=== PATIENT | female | born 2000 | race Caucasian/White ===

== ENCOUNTER 2023-11-19 10:49 | Emergency (ER) | payer OTHER ==
[~2023-11-19] VITALS: Ht 154.9 cm; Wt 54.4 kg
[2023-11-19 12:21] LABS: Urine Bacteria FEW /hpf (None Seen); Urine Blood Negative /uL (Negative); Urine Clarity Clear (Clear); Urine Color Colorless (Yellow); Urine Protein, UAD Negative (Negative); Urine Urobilinogen Normal (Negative); Urine WBC <1 /hpf (0 - 5); Urine pH 7.5 (5.0-9.0)
[2023-11-19 14:09] VITALS: BP 119/70; PULSE 92; RESP 18; O2SAT 97
== END 2023-11-19 14:13 | disposition home or self-care (01) ==
LOC: ER 10:49
DX: O20.0 Threatened abortion (principal); R10.2 Pelvic and perineal pain; Z3A.10 10 weeks gestation of pregnancy
CPT/HCPCS: 36415; 76801; 81001; 84702

== ENCOUNTER → 2024-04-03 | Outpatient (CLI) | payer OTHER ==
[2024-04-04 20:06] LABS: Chlamydia Trachomatis, NAA Negative (Negative); Neisseria gonorrhoeae, NAA Negative (Negative)
== END | disposition home or self-care (01) ==
LOC: LAB 12:32
PROVIDERS: ATTEND Obstetrics & Gynecology
DX: Z34.00 Encounter for supervision of normal first pregnancy, unspecified trimester (principal); N39.0 Urinary tract infection, site not specified; Z3A.00 Weeks of gestation of pregnancy not specified

== ENCOUNTER 2024-06-13 05:34 | Observation (INO) | payer MEDICAID, OTHER ==
--- NOTE | 2024-06-13 16:02 | DVH ---
CLINICAL HISTORY: POST DATES COMPARISON: None TECHNIQUE: biophysical profile was performed. Transabdominal sonographic images of the fetus we re obtained. FINDINGS: The fetus is in cephalic position. heart rate measures 147 BPM. Amniotic fluid index measures 22.5 cm. The placenta is anterior in position. No evidence of placenta previa or abruption v isualized. BPP profile is an overall score of 8/8, with 2/2 points for breathing, with at least one episode of breathing over a 30 second duration during a 30 minute observation, 2/2 points for m ovements, with 3 or more discrete body or limb movements, 2/2 points for tone, with one or more episodes of extremity extension with return to flexion, or opening and closing of hand, and 2/ 2 points for amniotic fluid, with at least 1 pocket of amniotic fluid that measures 2 cm in 2 perpend icular planes. IMPRESSION: BPP score of 8/8.
--- NOTE | 2024-06-13 16:29 | DVH ---
Left lower extremity venous duplex Clinical History: R/O DVT LEFT LOWER EXTREMITY Comparison: None Technique: Duplex Doppler evaluation of the deep venous system of the left lower extremity from the common femor al vein to the popliteal vein including color Doppler and spectral/pulsed waveform analysis was perfo rmed. Findings: The common femoral vein demonstrates appropriate compressibility and waveform variability. There is compressibility/patency of the great saphenous vein at the proximal thigh. The femoral vein demonstrates appropriate compressibility and waveform variability. The deep femoral vein demonstrates appropriate compressibility and waveform variability. The popliteal vein demonstrates appropriate compressibility and waveform variability. There is normal compressibility at the tibioperoneal trunk. Impression: 1. No left femoropopliteal venous thrombosis.
--- NOTE | 2024-06-13 19:39 | DVHDS2 ---
Physician Discharge Progress N Final Diagnosis: testing for term Operations or Procedures: Operations or Procedures 23yo IUP@40.1wks, +FM, denies UCs/LOF/VB. Pt c/o left leg swelling/pain/heat at site. VSS UA wnl NST reactive (last 20 minutes) verified by 2 RNs and CNM BPP wnl LLE sono WNL [facility]/Labor precautions reviewed Other Interventions Other Interventions [place] [id number] Ph: [phone] DIAGNOSTIC IMAGING Diagnostic Imaging Report : [id number] Signed PATIENT: JOSEFINA SANDS ACCT: [id number] UNIT: [id number] : 2000 LOC: [facility] ROOM / BED: TRIAGE1 / A AGE / SEX: 23 / F ADM STATUS: ADM IN SERVICE 155 ORDERING PHYSICIAN: ARIAN HUTCHISON CNM PROCEDURE(s): LLDVT - LT Lower DVT REASON: R/O DVT LEFT LOWER EXTREMITY ORDER NUMBER(s): [id number], ACCESSION NUMBER(s): [id number] Left lower extremity venous duplex Clinical History: R/O DVT LEFT LOWER EXTREMITY Comparison: None Technique: Duplex Doppler evaluation of the deep venous system of the left lower extremity from the common femoral vein to the popliteal vein including color Doppler and spectral/pulsed waveform analysis was performed. Findings: The common femoral vein demonstrates appropriate compressibility and waveform variability. There is compressibility/patency of the great saphenous vein at the proximal thigh. The femoral vein demonstrates appropriate compressibility and waveform variability. The deep femoral vein demonstrates appropriate compressibility and waveform variability. The popliteal vein demonstrates appropriate compressibility and waveform variability. There is normal compressibility at the tibioperoneal trunk. Impression: 1. No left femoropopliteal venous thrombosis. ATED BY: ISIDRO CERON MD DICTATED DATE/TIME: 06/13/241625 SIGNED BY: ISIDRO CERON MD SIGNED DATE/TIME: 06/13/241625 CC: Condition on Discharge: Stable Disposition: Home Discharge Instructions: Diet: Regular Activity: No Restrictions, As Tolerated Medications: see med list Follow Up Care: Specialist: f/u in 2 days Discharge Statement: "Patient was advised to return to the ER or call 911 if any headaches, dizziness, shortness of breath, chest pain, abdominal pain, bleeding, fevers, or worsening of medical condition. Patient was counseled about treatment plan, medications, possible side effects, patientverbalized understanding. All questions were answered to the best of my ability. This discharge took greater then 30 minutes in planning, reviewing documentation, counseling the patient, and discussing with other team members." ARIAN HUTCHISON CNM Jun 13, 2024 19:39
== END 2024-06-13 16:39 | disposition home or self-care (01) ==
LOC: LDRP 14:10 → UNDOADMOB 14:10 → LDRP 14:12 → UNDODISOB 16:39
PROVIDERS: ADMIT Obstetrics & Gynecology; ATTEND Obstetrics & Gynecology
DX: O48.0 Post-term pregnancy (principal); O26.893 Other specified pregnancy related conditions, third trimester; M79.89 Other specified soft tissue disorders; Z3A.40 40 weeks gestation of pregnancy; Z79.899 Other long term (current) drug therapy
CPT/HCPCS: 59025; 76818; 81002; 93971; 94760; G0378

== ENCOUNTER 2024-06-15 09:15 | Observation (INO) | payer OTHER, MEDICAID ==
--- NOTE | 2024-06-15 11:02 | DVH ---
BIOPHYSICAL PROFILE HISTORY: Post dates Comparison Study: None available at time of dictation. TECHNIQUE: Multiple real-time grayscale sonographic images through the gravid uterus of the fetus wit h duplex doppler color flow and M-mode spectral analysis FINDINGS: BIOPHYSICAL PROFILE: breathing score: 2 movement score: 2 tone score: 2 Quantitative LISA score: 2 (LISA: 20.4 cm.) Total score: 8/8 The cervix is not seen. Single live fetus in cephalic presentation. heart rate 173 beats per minute. Anterior placenta without previa or abruption Biophysical profile score 8/8 corresponding to an AMI of 06/12/2024 IMPRESSION: Biophysical profile score: 8/8
[2024-06-15] MEDS ORDERED: PREN1TAB71 OR (11:21)
--- NOTE | 2024-06-15 17:28 | DVHDS2 ---
Physician Discharge Progress N Final Diagnosis: POSTDATES Operations or Procedures: Operations or Procedures NST,SONO Condition on Discharge: Good Disposition: Home Discharge Instructions: Diet: Regular Activity: No Restrictions, As Tolerated Medications: NA Follow Up Care: Specialist: 2D Discharge Statement: "Patient was advised to return to the ER or call 911 if any headaches, dizziness, shortness of breath, chest pain, abdominal pain, bleeding, fevers, or worsening of medical condition. Patient was counseled about treatment plan, medications, possible side effects, patientverbalized understanding. All questions were answered to the best of my ability. This discharge took greater then 30 minutes in planning, reviewing documentation, counseling the patient, and discussing with other team members." NASH LOYD DO Jun 15, 2024 17:28
== END 2024-06-15 11:44 | disposition home or self-care (01) ==
LOC: LDRP 09:15
PROVIDERS: ADMIT Obstetrics & Gynecology; ATTEND Obstetrics & Gynecology
DX: O48.0 Post-term pregnancy (principal); Z98.890 Other specified postprocedural states; Z79.899 Other long term (current) drug therapy; Z3A.40 40 weeks gestation of pregnancy
CPT/HCPCS: 59025; 76818; 81002; G0378

== ENCOUNTER 2024-06-16 19:10 | Inpatient (IN) | payer OTHER, MEDICAID ==
[~2024-06-16] VITALS: Ht 154.9 cm; Wt 67.1 kg
[~2024-06-16 19:10] MED LIST: PREN1TAB71 OR
[2024-06-16] MEDS ORDERED: LIDOCAINE 2%HCL (LOCAL ANESTH.) INJ 20ML MDV IJ PRN (19:30)
[2024-06-16] MEDS ORDERED: DERMOPLAST 60ML BOTTLE TOP PRN (19:30)
[2024-06-16] MEDS ORDERED: WITCH HAZEL-GLYCERIN PAD TOP PRN (19:30)
[2024-06-16] MEDS ORDERED: BUTORPHANOL TARTRATE 2 MG/1 ML VIAL IV PRN ×2 (19:30)
[2024-06-16] MEDS ORDERED: PHISODERM TOP SOLN 240ML BTL TOP PRN (19:30)
[2024-06-16 20:25] LABS: Urine Bacteria None Seen /hpf (None Seen)
[2024-06-16 20:32] LABS: Basophils # (auto) 0 10 ^3/uL (0-0.2); Basophils % (auto) 0.1 % (0.0-2.0); Eosinophils # (auto) 0 10 ^3/uL (0-0.8); Hematocrit 30.8 % (36.0-46.0); Hemoglobin 10.2 g/dL (12.2-16.2); Lymphocytes # (auto) 2.7 10 ^3/uL (0.4-5.4); Lymphocytes % (auto) 19.4 % (10.0-50.0); Mean Corpuscular Hemoglobin 27.9 pg (28.0-32.0); Mean Corpuscular Hgb Conc. 33.2 g/dL (32.0-36.0); Mean Corpuscular Volume 83.9 fL (80.0-100.0); Monocytes # (auto) 0.6 10 ^3/uL (0-1.3); Monocytes % (auto) 4.7 % (0.0-12.0); Neutrophils # (auto) 10.4 10 ^3/uL (1.6-8.6); Neutrophils % (auto) 75.8 % (37.0-80.0); Nucleated Red Blood Cells % 0.1 %; Platelet Count (auto) 205 10^3/uL (140-450); Red Blood Cells 3.68 10^6/uL (4.0-5.20); Red Cell Distribution Width 14.7 % (11.8-14.3); White Blood Cell 13.7 10^3/uL (4.4-10.8)
[2024-06-16 20:34] LABS: Urine Blood Negative /uL (Negative); Urine Clarity Turbid (Clear); Urine Color Light-Yellow (Yellow); Urine Protein, UAD TRACE (Negative); Urine Squamous Epithelial Cell FEW /hpf (<5); Urine Urobilinogen Normal (Negative); Urine WBC 13 /hpf (0 - 5); Urine pH 6.5 (5.0-9.0)
[2024-06-16] MEDS: LACTATED RINGER'S 1,000 ML IV SCH (20:45)
[2024-06-16 20:47] LABS: INR 0.92 (0.9-1.15); Partial Thromboplastin Time 25.7 SEC (24.5-34.5); Prothrombin Time 9.8 sec (9.3-11.8)
[2024-06-16 20:51] LABS: Alanine Aminotransferase 12 U/L (7-40); Albumin 3.7 g/dL (3.2-4.8); Anion Gap 8 (5-15); Aspartate Aminotransferase 13 U/L (13-40); BUN/Creatinine Ratio 10.6 (10.0-20.0); Blood Urea Nitrogen 10 mg/dL (9-23); Calcium 9.5 mg/dL (8.7-10.4); Carbon Dioxide 23 mmol/L (20-31); Chloride 105 mmol/L (98-107); Glucose 95 mg/dL (74-106); Potassium 3.5 mmol/L (3.5-5.1); Sodium 136 mmol/L (136-145)
[2024-06-16 20:52] LABS: Bilirubin, Total 0.4 mg/dL (0.2-1.0); Total Protein 6.1 g/dL (5.7-8.2)
[2024-06-16] MEDS: DINOPROSTONE 10MG VAG SUPP PV ONE (21:08)
[2024-06-16 21:30] LABS: Amphetamine Screen, Urine Neg (NEGATIVE); Barbiturate Scree,Urine Neg (NEGATIVE); Benzodiazephine Screen, Urine Neg (NEGATIVE); Cannabinoid Screen, Urine Neg (NEGATIVE); Cocaine Screen, Urine Neg (NEGATIVE); Opiate Scree,Urine Neg (NEGATIVE); Phencyclidine Screen, Urine Neg (NEGATIVE)
[2024-06-16 21:31] LABS: Alkaline Phosphatase 220 U/L (46-116)
--- NOTE | 2024-06-16 23:14 | DVHHP2 ---
OB CC & HPI Date Date of Admission: Jun 16, 2024 Patient Identification: : 1 Para: 0 EDC: Jun 13, 2024 EGA: 40w 3d Chief Complaints: Reason for admission: induction of labor Indication for induction: post dates Admission Nurse Assessment Rev: Yes History of Present Complaints Ms Kenny presents to Place for scheduled IOL. she reports normal movements, no leakage of fluid, BERNAL, vision changes or epigastric pain Past Medical History Cardiac: No pertinent Hx Pulmonary: No pertinent Hx Central Nervous System: No pertinent Hx GI: No pertinent Hx Hemotology/Oncology: No pertinent Hx Hepatobiliary: No pertinent Hx Psychiatric: No pertinent Hx Musculoskeletal: No pertinent Hx Rheumotologic: No pertinent Hx Infectious Disease: No peritnent Hx ENT: No pertinent Hx Renal/: No pertinent Hx Endocrine: No pertinent Hx Dermatology: No pertinent Hx Past Surgical History: No pertinent Hx OB History OB History Care: Good Care Ultrasounds: Normal mid trimester US Obstetrical Complications: None Medical Complications: None Allergies: Coded Allergies: Penicillins (Verified Allergy, Unknown, 06/16/24) Home Meds Reported Medications Vit W/ Ferrous Fumara (PNV PLUS MULTIVI) Plus Tab, 1 OR, TAB 06/15/24 Current Medications Current Medications Medications (Trade) Dose Ordered Sig/Rita Route PRN Reason Start Time Stop Time Status Last Admin Lactated Ringer's 1,000 ml @ 125 mls/hr Q8H IV 06/16/24 19:30 Witch Anika (Tucks) 1 pad PRN PRN TOP PERINEAL AREA DISCOMFORT 06/16/24 19:30 Sodium Lauryl Sulfate (Phisoderm) 240 ml PRN PRN TOP PERINEAL AREA DISCOMFORT 06/16/24 19:30 Benzocaine (Dermoplast) 1 applic PRN PRN TOP PERINEAL AREA DISCOMFORT 06/16/24 19:30 Butorphanol Tartrate (Stadol Injection) 1 mg Q4HPRN PRN IV MODERATE PAIN (4-6 PAIN SCALE) 06/16/24 19:30 Butorphanol Tartrate (Stadol Injection) 2 mg Q4HPRN PRN IV SEVERE PAIN (7-10 PAIN SCALE) 06/16/24 19:30 Lidocaine HCl (Xylocaine) 20 ml ONCE PRN IJ PERINEAL AREA DISCOMFORT 06/16/24 19:30 Family & Social History Family/Social History Past Family/Social History: none pertinent Blood Type: A+ Rubella: immune RPR/VDRL: Negative GBS Status: Negative HBsAG: Negative Review of Systems Constitutional: No symptom reported Ears, Nose, & Throat: No symptom reported Eyes: No symptom reported Pulmonary/Respiratory: No symptom reported Cardiovascular: No symptom reported Gastrointestinal: No symptom reported Genitourinary: No symptom reported Musculoskeletal: No symptom reported Skin: No symptom reported Psychiatric: No symptom reported Endocrine: No symptom reported Hemotologic/Lymphatic: No symptom reported OB Admission Exam Physical Exam HEENT: Eyes non-injected, Moist Membranes Heart: Rhythm Normal Lungs: Clear Abdomen: Gravid Extremities: Normal Reflexes: Normal Cervical Dilatation: None Effacement: 0% Station: -2 Membranes: Intact Heart Rate: 130's Accelerations: Accelerations Present Decelerations: No Decelerations Human Intelligence Variability: Average (6-25) Contractions on Admission: 6-10 Minutes Apart Frequency of Contractions: irregular Duration: 70 Intensity: Mild OB Plan Plan Admitting Diagnosis: Induction IUP at 40w Anemia in Plan: Induction Induction Methd: Cervidal protocol Other Plan: IOL process, cervical ripening with medication, cervical ripening balloon, oxytocin etc including the risks, benefits and options discussed with the patient & partner. Informed consent obtained. Risk of pain, bleeding, infection, discussed with the patient and partner Consent for possible blood transfusion obtained. All questions answered. Admit to Place for scheduled IOL Routine L&D admission orders Cervidil per protocol ( Cervidil placed at 21:30pm) EFM per policy & protocol Intrauterine resuscitation PRN Labor analgesia PRN Encourage frequent position change and ambulation to facilitate labor & descent Supportive Care Anticipate CASH LOFTON CNM Jun 16, 2024 23:14
[2024-06-17] MEDS: NALBUPHINE HCL 10 MG/1ml INJECTION IV PRN (01:26)
[2024-06-17] MEDS: TERBUTALINE SULFATE 1 MG/ML 1ML VIAL SC PRN (05:42)
[2024-06-17] MEDS: TERBUTALINE SULFATE 1 MG/ML 1ML VIAL SC ONE (05:51)
--- NOTE | 2024-06-17 06:44 | DVHPN2 ---
CNM Labor Progress Note Date and Time Seen Date Seen: Jun 17, 2024 Time Seen: 01:40 Subjective Patient reports: No new complaints Monitoring Method Monitoring Method: External Heart Rate Heart Rate Baseline: 145 Heart Rate Variability: Moderate Presence of FHR Accelerations: Yes Presence of FHR Decelerations: No Changes in Trends of Patterns: No Contractions Contractions Frequency: Other (1-1.5min) Duration of Contraction: 60 Contractions Intensity: Moderate If NO What Corrective Measures: IV hydration not effective to resolve tachysystoly. Cervidil removed Membranes Membranes: Intact Vaginal Exam Vag Exam Deferred: Yes Medications Medications - Pitocin: No Medications - Pain Medications: Nalbuphine Medication - Epidural: No Lab Results Lab Results Vital Signs Date Time Temp Pulse Resp B/P (MAP) Pulse Ox O2 Delivery O2 Flow Rate FiO2 06/17/24 02:41 91 18 102/57 Current Medications Medications (Trade) Dose Ordered Sig/Rita Start Time Stop Time Status Last Admin Dose Admin Dinoprostone (Cervidil Suppository) 1 supp ONCE ONCE 06/16/24 19:30 06/16/24 19:39 DC 06/16/24 21:08 1 SUPP Lactated Ringer's 1,000 ml @ 125 mls/hr Q8H 06/16/24 19:30 06/17/24 06:58 125 MLS/HR Witch Anika (Tucks) 1 pad PRN PRN 06/16/24 19:30 Sodium Lauryl Sulfate (Phisoderm) 240 ml PRN PRN 06/16/24 19:30 Benzocaine (Dermoplast) 1 applic PRN PRN 06/16/24 19:30 Butorphanol Tartrate (Stadol Injection) 1 mg Q4HPRN PRN 06/16/24 19:30 06/17/24 00:43 DC Butorphanol Tartrate (Stadol Injection) 2 mg Q4HPRN PRN 06/16/24 19:30 06/17/24 00:43 DC Lidocaine HCl (Xylocaine) 20 ml ONCE PRN 06/16/24 19:30 Nalbuphine HCl (Nubain) 10 mg Q4HP PRN 06/17/24 00:30 06/17/24 01:26 10 MG Terbutaline Sulfate (Brethine Inj) 0.25 mg ONCE PRN 06/17/24 05:45 06/17/24 05:42 0.25 MG Misoprostol (Cytotec) 50 mcg Q4HPRN PRN 06/17/24 07:45 Laboratory Tests Test 06/16/24 22:05 06/16/24 20:24 06/16/24 20:14 Range/Units Treponema pallidum Ab (TP-PA) Pending Urine Color Light-yellow Yellow Urine Clarity Turbid H Clear Urine pH 6.5 5.0-9.0 Urine Specific [place] 1.020 1.001-1.035 Urine Protein Trace H Negative Urine Ketones Negative Negative Urine Blood Negative Negative /uL Urine Nitrite Negative Negative Urine Bilirubin Negative Negative Urine Urobilinogen Normal Negative mg/dL Urine Leukocyte Esterase 3+ Negative /uL Urine RBC 8 0 - 4 /hpf Urine WBC 13 0 - 5 /hpf Urine Squamous Epithelial Cells Few <5 /hpf Urine Bacteria None seen None Seen /hpf Urine Glucose Normal Normal mg/dL Urine Opiates Screen Neg NEGATIVE Urine Fentanyl Screen Neg NEGATIVE Urine Barbiturates Screen Neg NEGATIVE Urine Phencyclidine Screen Neg NEGATIVE Urine Amphetamines Screen Neg NEGATIVE Urine Benzodiazepines Screen Neg NEGATIVE Urine Cocaine Screen Neg NEGATIVE Urine Cannabinoids Screen Neg NEGATIVE White Blood Count 13.7 H 4.4-10.8 10^3/uL Red Blood Count 3.68 L 4.0-5.20 10^6/uL Hemoglobin 10.2 L 12.2-16.2 g/dL Hematocrit 30.8 L 36.0-46.0 % Mean Corpuscular Volume 83.9 80.0-100.0 fL Mean Corpuscular Hemoglobin 27.9 L 28.0-32.0 pg Mean Corpuscular Hemoglobin Concent 33.2 32.0-36.0 g/dL Red Cell Distribution Width 14.7 H 11.8-14.3 % Platelet Count 205 140-450 10^3/uL Mean Platelet Volume 11.6 H 6.9-10.8 fL Neutrophils (%) (Auto) 75.8 37.0-80.0 % Lymphocytes (%) (Auto) 19.4 10.0-50.0 % Monocytes (%) (Auto) 4.7 0.0-12.0 % Eosinophils (%) (Auto) 0.0 0.0-7.0 % Basophils (%) (Auto) 0.1 0.0-2.0 % Neutrophils # (Auto) 10.4 H 1.6-8.6 10 ^3/uL Lymphocytes # (Auto) 2.7 0.4-5.4 10 ^3/uL Monocytes # (Auto) 0.6 0-1.3 10 ^3/uL Eosinophils # (Auto) 0 0-0.8 10 ^3/uL Basophils # (Auto) 0 0-0.2 10 ^3/uL Nucleated Red Blood Cells 0.1 % Prothrombin Time 9.8 9.3-11.8 sec Prothrombin Time INR 0.92 0.9-1.15 Activated Partial Thromboplast Time 25.7 24.5-34.5 SEC Sodium Level 136 136-145 mmol/L Potassium Level 3.5 3.5-5.1 mmol/L Chloride Level 105 98-107 mmol/L Carbon Dioxide Level 23 20-31 mmol/L Anion Gap 8 5-15 Blood Urea Nitrogen 10 9-23 mg/dL Creatinine 0.94 0.550-1.02 mg/dL Glomerular Filtration Rate Calc 87 >90 mL/min BUN/Creatinine Ratio 10.6 10.0-20.0 Serum Glucose 95 74-106 mg/dL Calcium Level 9.5 8.7-10.4 mg/dL Total Bilirubin 0.4 0.2-1.0 mg/dL Aspartate Amino Transferase (AST) 13 13-40 U/L Alanine Aminotransferase (ALT) 12 7-40 U/L Alkaline Phosphatase 220 H 46-116 U/L Total Protein 6.1 5.7-8.2 g/dL Albumin 3.7 3.2-4.8 g/dL Rapid Plasma Reagin Pending Hepatitis C Antibody Pending Assessment Assessment IUP at 40w 3days IOL for Post Date Plan Plan Continue to monitor Re-assess progress in 2hours Intrauterine resuscitation PRN Encourage ambulation and frequent position change to facilitate labor Supportive care Plan discussed with: Patient KIRSTYCASH CNM Jun 17, 2024 06:44
--- NOTE | 2024-06-17 06:54 | DVHPN2 ---
CNM Labor Progress Note Date and Time Seen Date Seen: Jun 17, 2024 Time Seen: 05:40 Subjective Patient reports: No new complaints Monitoring Method Monitoring Method: External Heart Rate Heart Rate Baseline: 145 Heart Rate Variability: Minimal, Moderate Presence of FHR Accelerations: No Presence of FHR Decelerations: No Are all 5 Components of the FH: Yes Contractions Contractions Frequency: Other (1-1.5) Duration of Contraction: 110 Contractions Intensity: Moderate, Strong Membranes Membranes: Intact Vaginal Exam Vaginal Exam Dilation: 0 Vaginal Exam Effacement: 50 Vaginal Exam Station: -2 Vaginal Exam Presentation: VTX (VE by RN) Vaginal Exam Show: None Medications Medications - Pitocin: No Medication - Epidural: No Lab Results Lab Results Vital Signs Date Time Temp Pulse Resp B/P (MAP) Pulse Ox O2 Delivery O2 Flow Rate FiO2 06/17/24 02:41 91 18 102/57 Current Medications Medications (Trade) Dose Ordered Sig/Rita Start Time Stop Time Status Last Admin Dose Admin Dinoprostone (Cervidil Suppository) 1 supp ONCE ONCE 06/16/24 19:30 06/16/24 19:39 DC 06/16/24 21:08 1 SUPP Lactated Ringer's 1,000 ml @ 125 mls/hr Q8H 06/16/24 19:30 06/17/24 06:58 125 MLS/HR Witlori Anika (Tucks) 1 pad PRN PRN 06/16/24 19:30 Sodium Lauryl Sulfate (Phisoderm) 240 ml PRN PRN 06/16/24 19:30 Benzocaine (Dermoplast) 1 applic PRN PRN 06/16/24 19:30 Butorphanol Tartrate (Stadol Injection) 1 mg Q4HPRN PRN 06/16/24 19:30 06/17/24 00:43 DC Butorphanol Tartrate (Stadol Injection) 2 mg Q4HPRN PRN 06/16/24 19:30 06/17/24 00:43 DC Lidocaine HCl (Xylocaine) 20 ml ONCE PRN 06/16/24 19:30 Nalbuphine HCl (Nubain) 10 mg Q4HP PRN 06/17/24 00:30 06/17/24 01:26 10 MG Terbutaline Sulfate (Brethine Inj) 0.25 mg ONCE PRN 06/17/24 05:45 06/17/24 05:42 0.25 MG Misoprostol (Cytotec) 50 mcg Q4HPRN PRN 06/17/24 07:45 Laboratory Tests Test 06/16/24 22:05 06/16/24 20:24 06/16/24 20:14 Range/Units Treponema pallidum Ab (TP-PA) Pending Urine Color Light-yellow Yellow Urine Clarity Turbid H Clear Urine pH 6.5 5.0-9.0 Urine Specific [place] 1.020 1.001-1.035 Urine Protein Trace H Negative Urine Ketones Negative Negative Urine Blood Negative Negative /uL Urine Nitrite Negative Negative Urine Bilirubin Negative Negative Urine Urobilinogen Normal Negative mg/dL Urine Leukocyte Esterase 3+ Negative /uL Urine RBC 8 0 - 4 /hpf Urine WBC 13 0 - 5 /hpf Urine Squamous Epithelial Cells Few <5 /hpf Urine Bacteria None seen None Seen /hpf Urine Glucose Normal Normal mg/dL Urine Opiates Screen Neg NEGATIVE Urine Fentanyl Screen Neg NEGATIVE Urine Barbiturates Screen Neg NEGATIVE Urine Phencyclidine Screen Neg NEGATIVE Urine Amphetamines Screen Neg NEGATIVE Urine Benzodiazepines Screen Neg NEGATIVE Urine Cocaine Screen Neg NEGATIVE Urine Cannabinoids Screen Neg NEGATIVE White Blood Count 13.7 H 4.4-10.8 10^3/uL Red Blood Count 3.68 L 4.0-5.20 10^6/uL Hemoglobin 10.2 L 12.2-16.2 g/dL Hematocrit 30.8 L 36.0-46.0 % Mean Corpuscular Volume 83.9 80.0-100.0 fL Mean Corpuscular Hemoglobin 27.9 L 28.0-32.0 pg Mean Corpuscular Hemoglobin Concent 33.2 32.0-36.0 g/dL Red Cell Distribution Width 14.7 H 11.8-14.3 % Platelet Count 205 140-450 10^3/uL Mean Platelet Volume 11.6 H 6.9-10.8 fL Neutrophils (%) (Auto) 75.8 37.0-80.0 % Lymphocytes (%) (Auto) 19.4 10.0-50.0 % Monocytes (%) (Auto) 4.7 0.0-12.0 % Eosinophils (%) (Auto) 0.0 0.0-7.0 % Basophils (%) (Auto) 0.1 0.0-2.0 % Neutrophils # (Auto) 10.4 H 1.6-8.6 10 ^3/uL Lymphocytes # (Auto) 2.7 0.4-5.4 10 ^3/uL Monocytes # (Auto) 0.6 0-1.3 10 ^3/uL Eosinophils # (Auto) 0 0-0.8 10 ^3/uL Basophils # (Auto) 0 0-0.2 10 ^3/uL Nucleated Red Blood Cells 0.1 % Prothrombin Time 9.8 9.3-11.8 sec Prothrombin Time INR 0.92 0.9-1.15 Activated Partial Thromboplast Time 25.7 24.5-34.5 SEC Sodium Level 136 136-145 mmol/L Potassium Level 3.5 3.5-5.1 mmol/L Chloride Level 105 98-107 mmol/L Carbon Dioxide Level 23 20-31 mmol/L Anion Gap 8 5-15 Blood Urea Nitrogen 10 9-23 mg/dL Creatinine 0.94 0.550-1.02 mg/dL Glomerular Filtration Rate Calc 87 >90 mL/min BUN/Creatinine Ratio 10.6 10.0-20.0 Serum Glucose 95 74-106 mg/dL Calcium Level 9.5 8.7-10.4 mg/dL Total Bilirubin 0.4 0.2-1.0 mg/dL Aspartate Amino Transferase (AST) 13 13-40 U/L Alanine Aminotransferase (ALT) 12 7-40 U/L Alkaline Phosphatase 220 H 46-116 U/L Total Protein 6.1 5.7-8.2 g/dL Albumin 3.7 3.2-4.8 g/dL Rapid Plasma Reagin Pending Hepatitis C Antibody Pending Assessment Assessment IUP at 40w 3d IOL Category 1 FHR Tracing Tachysystole Plan Plan Tocolysis with Terbutaline Continue EFM Intrauterine resuscitation PRN Supportive Care Plan discussed with: Patient CASH LOFTON CNM Jun 17, 2024 06:53
--- NOTE | 2024-06-17 07:44 | DVHPN2 ---
OB Labor Progress Note Date and Time Seen Date Seen: Jun 17, 2024 Time Seen: 07:41 Subjective Patient reports: No new complaints Subjective Comment Induction of labor 40+ weeks. s/p Cervidil removed at 0100 due to tachysystole Denies any VB, PROM, mild contractions endorsed only. Objective Vital Signs VSS afeb Monitoring Method Monitoring Method: External Heart Rate Heart Rate Baseline: 130 Heart Rate Variability: Moderate Presence of FHR Accelerations: Yes Presence of FHR Decelerations: No Contractions Contractions Frequency: Other (3 to 4 in 10 mins) Contractions Intensity: Mild Contractions Resting Tone: Relaxed Membranes Membranes: Intact Vaginal Exam Vag Exam Deferred: No Vaginal Exam Dilation: 0 Vaginal Exam Effacement: 40 Vaginal Exam Station: -3 Vaginal Exam Presentation: VTX Vaginal Exam Show: None Medications Medications - Pitocin: No Medication - Epidural: No Lab Results Lab Results Vital Signs Date Time Temp Pulse Resp B/P (MAP) Pulse Ox O2 Delivery O2 Flow Rate FiO2 06/17/24 02:41 91 18 102/57 Current Medications Medications (Trade) Dose Ordered Sig/Rita Start Time Stop Time Status Last Admin Dose Admin Dinoprostone (Cervidil Suppository) 1 supp ONCE ONCE 06/16/24 19:30 06/16/24 19:39 DC 06/16/24 21:08 1 SUPP Lactated Ringer's 1,000 ml @ 125 mls/hr Q8H 06/16/24 19:30 06/17/24 06:58 125 MLS/HR Witch Anika (Tucks) 1 pad PRN PRN 06/16/24 19:30 Sodium Lauryl Sulfate (Phisoderm) 240 ml PRN PRN 06/16/24 19:30 Benzocaine (Dermoplast) 1 applic PRN PRN 06/16/24 19:30 Butorphanol Tartrate (Stadol Injection) 1 mg Q4HPRN PRN 06/16/24 19:30 06/17/24 00:43 DC Butorphanol Tartrate (Stadol Injection) 2 mg Q4HPRN PRN 06/16/24 19:30 06/17/24 00:43 DC Lidocaine HCl (Xylocaine) 20 ml ONCE PRN 06/16/24 19:30 Nalbuphine HCl (Nubain) 10 mg Q4HP PRN 06/17/24 00:30 06/17/24 01:26 10 MG Terbutaline Sulfate (Brethine Inj) 0.25 mg ONCE PRN 06/17/24 05:45 06/17/24 05:42 0.25 MG Misoprostol (Cytotec) 50 mcg Q4HPRN PRN 06/17/24 07:45 UNV Laboratory Tests Test 06/16/24 22:05 06/16/24 20:24 06/16/24 20:14 Range/Units Treponema pallidum Ab (TP-PA) Pending Urine Color Light-yellow Yellow Urine Clarity Turbid H Clear Urine pH 6.5 5.0-9.0 Urine Specific [place] 1.020 1.001-1.035 Urine Protein Trace H Negative Urine Ketones Negative Negative Urine Blood Negative Negative /uL Urine Nitrite Negative Negative Urine Bilirubin Negative Negative Urine Urobilinogen Normal Negative mg/dL Urine Leukocyte Esterase 3+ Negative /uL Urine RBC 8 0 - 4 /hpf Urine WBC 13 0 - 5 /hpf Urine Squamous Epithelial Cells Few <5 /hpf Urine Bacteria None seen None Seen /hpf Urine Glucose Normal Normal mg/dL Urine Opiates Screen Neg NEGATIVE Urine Fentanyl Screen Neg NEGATIVE Urine Barbiturates Screen Neg NEGATIVE Urine Phencyclidine Screen Neg NEGATIVE Urine Amphetamines Screen Neg NEGATIVE Urine Benzodiazepines Screen Neg NEGATIVE Urine Cocaine Screen Neg NEGATIVE Urine Cannabinoids Screen Neg NEGATIVE White Blood Count 13.7 H 4.4-10.8 10^3/uL Red Blood Count 3.68 L 4.0-5.20 10^6/uL Hemoglobin 10.2 L 12.2-16.2 g/dL Hematocrit 30.8 L 36.0-46.0 % Mean Corpuscular Volume 83.9 80.0-100.0 fL Mean Corpuscular Hemoglobin 27.9 L 28.0-32.0 pg Mean Corpuscular Hemoglobin Concent 33.2 32.0-36.0 g/dL Red Cell Distribution Width 14.7 H 11.8-14.3 % Platelet Count 205 140-450 10^3/uL Mean Platelet Volume 11.6 H 6.9-10.8 fL Neutrophils (%) (Auto) 75.8 37.0-80.0 % Lymphocytes (%) (Auto) 19.4 10.0-50.0 % Monocytes (%) (Auto) 4.7 0.0-12.0 % Eosinophils (%) (Auto) 0.0 0.0-7.0 % Basophils (%) (Auto) 0.1 0.0-2.0 % Neutrophils # (Auto) 10.4 H 1.6-8.6 10 ^3/uL Lymphocytes # (Auto) 2.7 0.4-5.4 10 ^3/uL Monocytes # (Auto) 0.6 0-1.3 10 ^3/uL Eosinophils # (Auto) 0 0-0.8 10 ^3/uL Basophils # (Auto) 0 0-0.2 10 ^3/uL Nucleated Red Blood Cells 0.1 % Prothrombin Time 9.8 9.3-11.8 sec Prothrombin Time INR 0.92 0.9-1.15 Activated Partial Thromboplast Time 25.7 24.5-34.5 SEC Sodium Level 136 136-145 mmol/L Potassium Level 3.5 3.5-5.1 mmol/L Chloride Level 105 98-107 mmol/L Carbon Dioxide Level 23 20-31 mmol/L Anion Gap 8 5-15 Blood Urea Nitrogen 10 9-23 mg/dL Creatinine 0.94 0.550-1.02 mg/dL Glomerular Filtration Rate Calc 87 >90 mL/min BUN/Creatinine Ratio 10.6 10.0-20.0 Serum Glucose 95 74-106 mg/dL Calcium Level 9.5 8.7-10.4 mg/dL Total Bilirubin 0.4 0.2-1.0 mg/dL Aspartate Amino Transferase (AST) 13 13-40 U/L Alanine Aminotransferase (ALT) 12 7-40 U/L Alkaline Phosphatase 220 H 46-116 U/L Total Protein 6.1 5.7-8.2 g/dL Albumin 3.7 3.2-4.8 g/dL Rapid Plasma Reagin Pending Hepatitis C Antibody Pending Assessment Assessment IUP 40+ wk, Labor induction Category 1 FHR pattern Plan Plan PO Cytotec per protocol for labor induction plan, labor analgesia, indications for C/S, indications for episiotomy, vacuum delivery all discussed with patient. Plan discussed with: Patient, Other (RN) DAMIAN ALBERTO DO Jun 17, 2024 07:44
[2024-06-17] MEDS: miSOPROStol 50 MCG per PRE-CUT 1/2 TAB PO PRN (08:02)
[2024-06-18 03:34] VITALS: BP 101/66; PULSE 69; RESP 18
--- NOTE | 2024-06-18 06:35 | DVHPN2 ---
OB Labor Progress Note Date and Time Seen Date Seen: Jun 18, 2024 Time Seen: 06:32 Subjective Patient reports: No new complaints Objective Vital Signs Afeb VSS Monitoring Method Monitoring Method: External Heart Rate Heart Rate Baseline: 140 Heart Rate Variability: Moderate Presence of FHR Accelerations: No Presence of FHR Decelerations: No Contractions Contractions Frequency: Occasional Contractions Intensity: Mild Membranes Membranes: Intact Vaginal Exam Vag Exam Deferred: Yes Vaginal Exam Presentation: VTX Medications Medications - Pitocin: No Medication - Epidural: No Lab Results Lab Results Vital Signs Date Time Temp Pulse Resp B/P (MAP) Pulse Ox O2 Delivery O2 Flow Rate FiO2 06/18/24 03:34 69 18 101/66 Current Medications Medications (Trade) Dose Ordered Sig/Rita Start Time Stop Time Status Last Admin Dose Admin Dinoprostone (Cervidil Suppository) 1 supp ONCE ONCE 06/16/24 19:30 06/16/24 19:39 DC 06/16/24 21:08 1 SUPP Lactated Ringer's 1,000 ml @ 125 mls/hr Q8H 06/16/24 19:30 06/17/24 14:31 125 MLS/HR Witch Anika (Tucks) 1 pad PRN PRN 06/16/24 19:30 Sodium Lauryl Sulfate (Phisoderm) 240 ml PRN PRN 06/16/24 19:30 Benzocaine (Dermoplast) 1 applic PRN PRN 06/16/24 19:30 Butorphanol Tartrate (Stadol Injection) 1 mg Q4HPRN PRN 06/16/24 19:30 06/17/24 00:43 DC Butorphanol Tartrate (Stadol Injection) 2 mg Q4HPRN PRN 06/16/24 19:30 06/17/24 00:43 DC Lidocaine HCl (Xylocaine) 20 ml ONCE PRN 06/16/24 19:30 Nalbuphine HCl (Nubain) 10 mg Q4HP PRN 06/17/24 00:30 06/18/24 03:34 10 MG Terbutaline Sulfate (Brethine Inj) 0.25 mg ONCE PRN 06/17/24 05:45 06/17/24 05:42 0.25 MG Misoprostol (Cytotec) 50 mcg Q4HPRN PRN 06/17/24 07:45 06/18/24 03:23 50 MCG Laboratory Tests Test 06/16/24 22:05 06/16/24 20:24 06/16/24 20:14 Range/Units Treponema pallidum Ab (TP-PA) Pending Urine Color Light-yellow Yellow Urine Clarity Turbid H Clear Urine pH 6.5 5.0-9.0 Urine Specific [place] 1.020 1.001-1.035 Urine Protein Trace H Negative Urine Ketones Negative Negative Urine Blood Negative Negative /uL Urine Nitrite Negative Negative Urine Bilirubin Negative Negative Urine Urobilinogen Normal Negative mg/dL Urine Leukocyte Esterase 3+ Negative /uL Urine RBC 8 0 - 4 /hpf Urine WBC 13 0 - 5 /hpf Urine Squamous Epithelial Cells Few <5 /hpf Urine Bacteria None seen None Seen /hpf Urine Glucose Normal Normal mg/dL Urine Opiates Screen Neg NEGATIVE Urine Fentanyl Screen Neg NEGATIVE Urine Barbiturates Screen Neg NEGATIVE Urine Phencyclidine Screen Neg NEGATIVE Urine Amphetamines Screen Neg NEGATIVE Urine Benzodiazepines Screen Neg NEGATIVE Urine Cocaine Screen Neg NEGATIVE Urine Cannabinoids Screen Neg NEGATIVE White Blood Count 13.7 H 4.4-10.8 10^3/uL Red Blood Count 3.68 L 4.0-5.20 10^6/uL Hemoglobin 10.2 L 12.2-16.2 g/dL Hematocrit 30.8 L 36.0-46.0 % Mean Corpuscular Volume 83.9 80.0-100.0 fL Mean Corpuscular Hemoglobin 27.9 L 28.0-32.0 pg Mean Corpuscular Hemoglobin Concent 33.2 32.0-36.0 g/dL Red Cell Distribution Width 14.7 H 11.8-14.3 % Platelet Count 205 140-450 10^3/uL Mean Platelet Volume 11.6 H 6.9-10.8 fL Neutrophils (%) (Auto) 75.8 37.0-80.0 % Lymphocytes (%) (Auto) 19.4 10.0-50.0 % Monocytes (%) (Auto) 4.7 0.0-12.0 % Eosinophils (%) (Auto) 0.0 0.0-7.0 % Basophils (%) (Auto) 0.1 0.0-2.0 % Neutrophils # (Auto) 10.4 H 1.6-8.6 10 ^3/uL Lymphocytes # (Auto) 2.7 0.4-5.4 10 ^3/uL Monocytes # (Auto) 0.6 0-1.3 10 ^3/uL Eosinophils # (Auto) 0 0-0.8 10 ^3/uL Basophils # (Auto) 0 0-0.2 10 ^3/uL Nucleated Red Blood Cells 0.1 % Prothrombin Time 9.8 9.3-11.8 sec Prothrombin Time INR 0.92 0.9-1.15 Activated Partial Thromboplast Time 25.7 24.5-34.5 SEC Sodium Level 136 136-145 mmol/L Potassium Level 3.5 3.5-5.1 mmol/L Chloride Level 105 98-107 mmol/L Carbon Dioxide Level 23 20-31 mmol/L Anion Gap 8 5-15 Blood Urea Nitrogen 10 9-23 mg/dL Creatinine 0.94 0.550-1.02 mg/dL Glomerular Filtration Rate Calc 87 >90 mL/min BUN/Creatinine Ratio 10.6 10.0-20.0 Serum Glucose 95 74-106 mg/dL Calcium Level 9.5 8.7-10.4 mg/dL Total Bilirubin 0.4 0.2-1.0 mg/dL Aspartate Amino Transferase (AST) 13 13-40 U/L Alanine Aminotransferase (ALT) 12 7-40 U/L Alkaline Phosphatase 220 H 46-116 U/L Total Protein 6.1 5.7-8.2 g/dL Albumin 3.7 3.2-4.8 g/dL Rapid Plasma Reagin Pending Hepatitis C Antibody Negative Negative Assessment Assessment IUP 41 wk, induction of labor Unfavorable cervix s/p Cytotec PO x several doses Plan Plan Patient refused COOK Balloon placement continue Cytotec/Pitocin per protocol for induction of labor Care endorsed to Dr. 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
[2024-06-18 08:06] LABS: RPR Non Reactive (Non Reactive)
--- NOTE | 2024-06-18 08:19 | DVH ---
Procedure: US BIOPHYSICAL PROFILE 06/18/2024 06:19 AM Indication: Post dates Comparison: US BIOPHYSICAL PROFILE on DOS: 06/15/24, US BIOPHYSICAL PROFILE on DOS: 06/13/24 Technique: Sonogram of gravid uterus utilizing grayscale and color techniques. FINDINGS: Single living intrauterine gestation. Presentation: Cephalic Placenta: Anterior, grade 3 heart rate: 129 bpm LISA: 10 22.2 cm, DVP: 944 cm Maternal cervix: Not visualized Biophysical Profile: breathing score: 0 movement score: 2 tone: 2 Quantitative LISA score: 2 Total score: 8/8 IMPRESSION: 1. Single living as above. 2. Biophysical profile score: 6/8. No breathing was seen over 60 minutes of observation.
--- NOTE | 2024-06-18 12:19 | DVH ---
BIOPHYSICAL PROFILE HISTORY: Post dates TECHNIQUE: Multiple transabdominal real-time grayscale sonographic images through the gravid uterus of the fetus with duplex Doppler color flow and M-mode spectral analysis FINDINGS: BIOPHYSICAL PROFILE: breathing score: 2 movement score: 2 tone score: 2 Quantitative LISA score: 2 Total score: 8/8 Single live fetus in cephalic presentation. heart rate 157 beats per minute. Anterior placenta without previa or abruption IMPRESSION: 1. Biophysical profile score: 8/8 HS:Y
--- NOTE | 2024-06-18 12:54 | DVHPN2 ---
Chief Complaints Patient reports: No new complaints Nursing reports: No new complaints Objective Vitals Vital Signs Date Time Temp Pulse Resp B/P (MAP) Pulse Ox O2 Delivery O2 Flow Rate FiO2 06/18/24 03:34 69 18 101/66 Others ve -unchanged Studies Laboratory Tests 06/16/24 20:14 Test 06/16/24 20:14 Range/Units Serum Glucose 95 74-106 mg/dL Ass/Plan Assessment iol failed Plan pt is refusing [facility] or [facility] ballon .she rec 4 cytotec and has no changes. she wants to be dc home to return in 2 days for another trial NASH LOYD DO Jun 18, 2024 12:54
--- NOTE | 2024-06-18 12:56 | DVHDS2 ---
Physician Discharge Progress N Final Diagnosis: failed induction Operations or Procedures: Operations or Procedures nst,sono,bpp 01/17 Condition on Discharge: Good Disposition: Home Discharge Instructions: Diet: Regular Activity: No Restrictions, As Tolerated Medications: na Follow Up Care: Specialist: one day for nst/bpp and in 2 days for induction Discharge Statement: "Patient was advised to return to the ER or call 911 if any headaches, dizziness, shortness of breath, chest pain, abdominal pain, bleeding, fevers, or worsening of medical condition. Patient was counseled about treatment plan, medications, possible side effects, patientverbalized understanding. All questions were answered to the best of my ability. This discharge took greater then 30 minutes in planning, reviewing documentation, counseling the patient, and discussing with other team members." NASH LOYD DO Jun 18, 2024 12:56
== END 2024-06-18 13:43 | disposition home or self-care (01) | DRG 833 ==
LOC: LDRP 19:10
PROVIDERS: ADMIT Obstetrics & Gynecology; ATTEND Obstetrics & Gynecology
DX: O48.0 Post-term pregnancy (principal); O61.9 Failed induction of labor, unspecified; O99.013 Anemia complicating pregnancy, third trimester; Z3A.40 40 weeks gestation of pregnancy; Z88.0 Allergy status to penicillin
CPT/HCPCS: 36415; 59025; 76818; 80053; 80307; 81001; 81002; 85025; 85610; 85730; 86592; 86780; 86803; 86850; 86900; 86901; 94760; 94762; 96360; 96361; 96374; 96375; G0378

== ENCOUNTER 2024-06-19 06:32 | Observation (INO) | payer OTHER, MEDICAID ==
--- NOTE | 2024-06-19 13:59 | DVH ---
BIOPHYSICAL PROFILE HISTORY: post term TECHNIQUE: Multiple transabdominal real-time grayscale sonographic images through the gravid uterus of the fetus with duplex Doppler color flow and M-mode spectral analysis FINDINGS: BIOPHYSICAL PROFILE: breathing score: 2 movement score: 2 tone score: 2 Quantitative LISA score: 2 (LISA: 20.8 Cm.) Total score: 8/8 Single live fetus in cephalic presentation. heart rate 164 beats per minute. Anterior placenta without previa or abruption IMPRESSION: 1. Biophysical profile score: 8/8 HS:Y
--- NOTE | 2024-06-19 18:14 | DVHDS2 ---
Physician Discharge Progress N Final Diagnosis: postadytes Operations or Procedures: Operations or Procedures nst,sono Condition on Discharge: Good Disposition: Home Discharge Instructions: Diet: Regular Activity: Light activity Medications: na Follow Up Care: Specialist: 2d Discharge Statement: "Patient was advised to return to the ER or call 911 if any headaches, dizzines s, shortness of breath, chest pain, abdominal pain, bleeding, fevers, or worsening of medical condition. Patient was counseled about treatment plan, medications, possible side effects, patientverbalized understanding. All questions were answered to the best of my ability. This discharge took greater then 30 minutes in planning, reviewing documentation, counseling the patient, and discussing with other team members." NASH LOYD DO Jun 19, 2024 18:13
== END 2024-06-19 15:30 | disposition home or self-care (01) ==
LOC: LDRP 13:05
PROVIDERS: ADMIT Obstetrics & Gynecology; ATTEND Obstetrics & Gynecology
DX: O48.0 Post-term pregnancy (principal); O62.9 Abnormality of forces of labor, unspecified; O34.63 Maternal care for abnormality of vagina, third trimester; N89.8 Other specified noninflammatory disorders of vagina; O12.03 Gestational edema, third trimester; Z3A.41 41 weeks gestation of pregnancy; Z88.0 Allergy status to penicillin; Z79.899 Other long term (current) drug therapy
CPT/HCPCS: 59025; 76818; 81002; 94760; G0378

== ENCOUNTER 2024-06-20 22:17 | Inpatient (IN) | payer OTHER, MEDICAID ==
[~2024-06-20] VITALS: Ht 154.9 cm; Wt 67.1 kg
[2024-06-20] MEDS ORDERED: WITCH HAZEL-GLYCERIN PAD TOP PRN (22:30)
[2024-06-20] MEDS ORDERED: LIDOCAINE 2%HCL (LOCAL ANESTH.) INJ 20ML MDV IJ PRN (22:30)
[2024-06-20] MEDS ORDERED: PHISODERM TOP SOLN 240ML BTL TOP PRN (22:30)
[2024-06-20] MEDS ORDERED: DERMOPLAST 60ML BOTTLE TOP PRN (22:30)
[2024-06-20] MEDS: LACTATED RINGER'S 1,000 ML IV SCH (22:54)
[2024-06-20 22:56] LABS: Urine Bacteria None Seen /hpf (None Seen)
[2024-06-20 23:05] LABS: Basophils # (auto) 0 10 ^3/uL (0-0.2); Basophils % (auto) 0.1 % (0.0-2.0); Eosinophils # (auto) 0 10 ^3/uL (0-0.8); Hematocrit 29.6 % (36.0-46.0); Hemoglobin 9.7 g/dL (12.2-16.2); Lymphocytes # (auto) 2.2 10 ^3/uL (0.4-5.4); Lymphocytes % (auto) 18.7 % (10.0-50.0); Mean Corpuscular Hemoglobin 27.9 pg (28.0-32.0); Mean Corpuscular Hgb Conc. 32.9 g/dL (32.0-36.0); Mean Corpuscular Volume 84.9 fL (80.0-100.0); Monocytes # (auto) 0.7 10 ^3/uL (0-1.3); Neutrophils # (auto) 8.8 10 ^3/uL (1.6-8.6); Neutrophils % (auto) 75.2 % (37.0-80.0); Platelet Count (auto) 186 10^3/uL (140-450); Red Blood Cells 3.48 10^6/uL (4.0-5.20); White Blood Cell 11.7 10^3/uL (4.4-10.8)
[2024-06-20 23:07] LABS: Urine Blood Negative /uL (Negative); Urine Budding Yeast OCCASIONAL /hpf (None Seen); Urine Clarity Clear (Clear); Urine Color Light-Yellow (Yellow); Urine Mucus FEW (None Seen); Urine Protein, UAD Negative (Negative); Urine Specific Gravity 1.019 (1.001-1.035); Urine Squamous Epithelial Cell FEW /hpf (<5); Urine Urobilinogen Normal (Negative); Urine WBC <1 /hpf (0 - 5); Urine pH 6.5 (5.0-9.0)
[2024-06-20 23:17] LABS: INR 0.92 (0.9-1.15); Partial Thromboplastin Time 29.6 SEC (24.5-34.5); Prothrombin Time 9.8 sec (9.3-11.8)
[2024-06-20 23:23] LABS: Alanine Aminotransferase 10 U/L (7-40); Albumin 3.3 g/dL (3.2-4.8); Anion Gap 9 (5-15); Aspartate Aminotransferase 15 U/L (13-40); BUN/Creatinine Ratio 11.8 (10.0-20.0); Bilirubin, Total 0.3 mg/dL (0.2-1.0); Calcium 9.3 mg/dL (8.7-10.4); Carbon Dioxide 21 mmol/L (20-31); Glucose 103 mg/dL (74-106); Potassium 3.7 mmol/L (3.5-5.1); Sodium 140 mmol/L (136-145)
[2024-06-20 23:25] LABS: Amphetamine Screen, Urine Neg (NEGATIVE); Barbiturate Scree,Urine Neg (NEGATIVE); Benzodiazephine Screen, Urine Neg (NEGATIVE); Cannabinoid Screen, Urine Neg (NEGATIVE); Cocaine Screen, Urine Neg (NEGATIVE); Opiate Scree,Urine Neg (NEGATIVE); Phencyclidine Screen, Urine Neg (NEGATIVE)
[2024-06-20 23:25] LABS: Alkaline Phosphatase 201 U/L (46-116); Blood Urea Nitrogen 9 mg/dL (9-23); Chloride 110 mmol/L (98-107); Total Protein 5.4 g/dL (5.7-8.2)
--- NOTE | 2024-06-20 23:28 | DVHHP2 ---
OB CC & HPI Date Date of Admission: Jun 20, 2024 Patient Identification: : 1 Para: 0 EDC: Jun 12, 2024 EGA: 41.1 weeks Chief Complaints: Reason for admission: induction of labor Other reason for admission: Postdates Admission Nurse Assessment Rev: Yes History of Present Complaints HPI: 23 y o presented to L&D for scheduled IOL due to postdates. Ramana UC's, VB or ROM. Confimred + FM. PNC: Pt has been receiving routine care here at [facility]. Intake at 10 weeks, seen x greater than 10 visits anf course has been uncomplicated. Past Medical History Cardiac: No pertinent Hx Past Surgical History: No pertinent Hx OB History OB History Care: Good Care Ultrasounds: Normal mid trimester US Obstetrical Complications: None Medical Complications: None Allergies: Coded Allergies: Penicillins (Verified Allergy, Unknown, 06/16/24) Home Meds Reported Medications Vit W/ Ferrous Fumara (PNV PLUS MULTIVI) Plus Tab, 1 OR, TAB 06/15/24 Current Medications Current Medications Medications (Trade) Dose Ordered Sig/Rita Route PRN Reason Start Time Stop Time Status Last Admin Lactated Ringer's 1,000 ml @ 125 mls/hr Q8H IV 06/20/24 22:30 06/20/24 22:54 Nalbuphine HCl (Nubain) 10 mg Q4HP PRN IV MODERATE PAIN (4-6 PAIN SCALE) 06/20/24 22:30 Witch Anika (Tucks) 1 pad PRN PRN TOP PERINEAL AREA DISCOMFORT 06/20/24 22:30 Sodium Lauryl Sulfate (Phisoderm) 240 ml PRN PRN TOP PERINEAL AREA DISCOMFORT 06/20/24 22:30 Benzocaine (Dermoplast) 1 applic PRN PRN TOP PERINEAL AREA DISCOMFORT 06/20/24 22:30 Lidocaine HCl (Xylocaine) 20 ml ONCE PRN IJ PERINEAL AREA DISCOMFORT 06/20/24 22:30 Family & Social History Family/Social History Blood Type: A+ Rubella: immune RPR/VDRL: Negative GBS Status: Negative HBsAG: Negative Review of Systems Constitutional: No symptom reported Ears, Nose, & Throat: No symptom reported Eyes: No symptom reported Pulmonary/Respiratory: No symptom reported Cardiovascular: No symptom reported Gastrointestinal: No symptom reported Genitourinary: No symptom reported Musculoskeletal: No symptom reported Skin: No symptom reported Psychiatric: No symptom reported Endocrine: No symptom reported Hemotologic/Lymphatic: No symptom reported OB Admission Exam Physical Exam HEENT: TMs Normal, Nasal Mucosa Normal, Eyes non-injected, Oropharynx Normal, PERRLA, Moist Membranes, EOMI Heart: Rhythm Normal Lungs: Clear Abdomen: Gravid Extremities: Normal Reflexes: Normal Pelvic Exam: Performed by CNM Cervical Dilatation: 1cm Effacement: Other (60%) Station: -3 Membranes: Intact Heart Rate: 150's Accelerations: Accelerations Present Decelerations: No Decelerations Short Term Variability: Present Snf Variability: Average (6-25) Date/Time Contractions Began: 06/20/24 Frequency of Contractions: occasional Duration: 60 secs Intensity: Mild OB Plan Plan Admitting Diagnosis: Induction of Labor Plan: Induction, Other Other Plan: Admit to L&D IV hydration Cytotec 50mcg q 4 until regular UC pattern and/or cervical change Pitocin to follow if indicated Epidural or analgesia if indicated MS/LAKSHMIM co management and care ADITHYA GONZALEZ CNM Jun 20, 2024 23:28
--- NOTE | 2024-06-21 03:01 | DVHPN2 ---
HILAR[facility] Labor Progress Note Date and Time Seen Date Seen: Jun 21, 2024 Time Seen: 02:56 Subjective Patient reports: No new complaints Monitoring Method Monitoring Method: External Heart Rate Heart Rate Baseline: 110 Heart Rate Variability: Moderate Presence of FHR Accelerations: Yes Presence of FHR Decelerations: No Changes in Trends of Patterns: No Are all 5 Components of the FH: Yes Contractions Contractions Frequency: Other (Irregular intervals) Duration of Contraction: 60 Contractions Intensity: Mild Contractions Resting Tone: Relaxed Membranes Membranes: Intact Vaginal Exam Vag Exam Deferred: Yes Medications Medications - Pitocin: No Medication - Epidural: No Lab Results Lab Results Current Medications Medications (Trade) Dose Ordered Sig/Rita Start Time Stop Time Status Last Admin Dose Admin Lactated Ringer's 1,000 ml @ 125 mls/hr Q8H 06/20/24 22:30 06/20/24 22:54 125 MLS/HR Nalbuphine HCl (Nubain) 10 mg Q4HP PRN 06/20/24 22:30 Witch Anika (Tucks) 1 pad PRN PRN 06/20/24 22:30 Sodium Lauryl Sulfate (Phisoderm) 240 ml PRN PRN 06/20/24 22:30 Benzocaine (Dermoplast) 1 applic PRN PRN 06/20/24 22:30 Lidocaine HCl (Xylocaine) 20 ml ONCE PRN 06/20/24 22:30 Laboratory Tests Test 06/20/24 22:44 06/20/24 22:30 Range/Units White Blood Count 11.7 H 4.4-10.8 10^3/uL Red Blood Count 3.48 L 4.0-5.20 10^6/uL Hemoglobin 9.7 L 12.2-16.2 g/dL Hematocrit 29.6 L 36.0-46.0 % Mean Corpuscular Volume 84.9 80.0-100.0 fL Mean Corpuscular Hemoglobin 27.9 L 28.0-32.0 pg Mean Corpuscular Hemoglobin Concent 32.9 32.0-36.0 g/dL Red Cell Distribution Width 15.0 H 11.8-14.3 % Platelet Count 186 140-450 10^3/uL Mean Platelet Volume 11.5 H 6.9-10.8 fL Neutrophils (%) (Auto) 75.2 37.0-80.0 % Lymphocytes (%) (Auto) 18.7 10.0-50.0 % Monocytes (%) (Auto) 6.0 0.0-12.0 % Eosinophils (%) (Auto) 0.0 0.0-7.0 % Basophils (%) (Auto) 0.1 0.0-2.0 % Neutrophils # (Auto) 8.8 H 1.6-8.6 10 ^3/uL Lymphocytes # (Auto) 2.2 0.4-5.4 10 ^3/uL Monocytes # (Auto) 0.7 0-1.3 10 ^3/uL Eosinophils # (Auto) 0 0-0.8 10 ^3/uL Basophils # (Auto) 0 0-0.2 10 ^3/uL Nucleated Red Blood Cells 0.0 % Prothrombin Time 9.8 9.3-11.8 sec Prothrombin Time INR 0.92 0.9-1.15 Activated Partial Thromboplast Time 29.6 24.5-34.5 SEC Sodium Level 140 136-145 mmol/L Potassium Level 3.7 3.5-5.1 mmol/L Chloride Level 110 H 98-107 mmol/L Carbon Dioxide Level 21 20-31 mmol/L Anion Gap 9 5-15 Blood Urea Nitrogen 9 9-23 mg/dL Creatinine 0.76 0.550-1.02 mg/dL Glomerular Filtration Rate Calc 112 >90 mL/min BUN/Creatinine Ratio 11.8 10.0-20.0 Serum Glucose 103 74-106 mg/dL Calcium Level 9.3 8.7-10.4 mg/dL Total Bilirubin 0.3 0.2-1.0 mg/dL Aspartate Amino Transferase (AST) 15 13-40 U/L Alanine Aminotransferase (ALT) 10 7-40 U/L Alkaline Phosphatase 201 H 46-116 U/L Total Protein 5.4 L 5.7-8.2 g/dL Albumin 3.3 3.2-4.8 g/dL Rapid Plasma Reagin Pending Hepatitis C Antibody Negative Negative Urine Color Light-yellow Yellow Urine Clarity Clear Clear Urine pH 6.5 5.0-9.0 Urine Specific [place] 1.019 1.001-1.035 Urine Protein Negative Negative Urine Ketones Negative Negative Urine Blood Negative Negative /uL Urine Nitrite Negative Negative Urine Bilirubin Negative Negative Urine Urobilinogen Normal Negative mg/dL Urine Leukocyte Esterase 2+ Negative /uL Urine RBC <1 0 - 4 /hpf Urine WBC <1 0 - 5 /hpf Urine Squamous Epithelial Cells Few <5 /hpf Urine Bacteria None seen None Seen /hpf Urine Mucus Few None Seen Urine Yeast (Budding) Occasional None Seen /hpf Urine Glucose Normal Normal mg/dL Urine Opiates Screen Neg NEGATIVE Urine Fentanyl Screen Neg NEGATIVE Urine Barbiturates Screen Neg NEGATIVE Urine Phencyclidine Screen Neg NEGATIVE Urine Amphetamines Screen Neg NEGATIVE Urine Benzodiazepines Screen Neg NEGATIVE Urine Cocaine Screen Neg NEGATIVE Urine Cannabinoids Screen Neg NEGATIVE Assessment Assessment IUP at 41.2 weeks IOL Plan Plan Continue previous plan Reassess as needed Plan discussed with: Patient, Other (RN) ADITHYA GONZALEZ CNM Jun 21, 2024 03:01
[2024-06-21] MEDS: miSOPROStol 50 MCG per PRE-CUT 1/2 TAB PO PRN (05:30)
--- NOTE | 2024-06-21 07:06 | DVH ---
LIMITED OB ULTRASOUND > 14 WKS: HISTORY: Post-dates. Induction of labor. TECHNIQUE: Multiple real-time grayscale images of the gravid uterus with duplex Doppler color flow an d M-mode spectral analysis. COMPARISON: US OB ULTRASOUND COMP LESS 14WKS on DOS: 11/19/23 FINDINGS: IUP single live fetus at 38 weeks 4 days based on composite averages of the BPD, head circumference, abdominal circumference and femur length. Somewhat limited evaluation of the head due to gestat ional age. Estimated weight 3808 grams. heart rate 141 beats per minute. LISA 27.4 cm Cervix is not visualized. Cephalic presentation Grade 3 placenta without previa or abruption, in anterior position. IMPRESSION: 1. IUP single live fetus at 38 weeks 4 days AUA corresponding to an AMI of 07/01/2024. 2. Amniotic fluid index of 27.4.
--- NOTE | 2024-06-21 07:14 | DVHPN2 ---
Chief Complaints Patient reports: No new complaints Nursing reports: No new complaints Objective Medications Current Medications Medications (Trade) Dose Ordered Sig/Rita Route PRN Reason Start Time Stop Time Status Last Admin Benzocaine (Dermoplast) 1 applic PRN PRN TOP PERINEAL AREA DISCOMFORT 06/20/24 22:30 Lactated Ringer's 1,000 ml @ 125 mls/hr Q8H IV 06/20/24 22:30 06/20/24 22:54 Lidocaine HCl (Xylocaine) 20 ml ONCE PRN IJ PERINEAL AREA DISCOMFORT 06/20/24 22:30 Misoprostol (Cytotec) 50 mcg Q4HPRN PRN PO CERVICAL RIPENING 06/21/24 05:30 06/21/24 05:30 Nalbuphine HCl (Nubain) 10 mg Q4HP PRN IV MODERATE PAIN (4-6 PAIN SCALE) 06/20/24 22:30 Sodium Lauryl Sulfate (Phisoderm) 240 ml PRN PRN TOP PERINEAL AREA DISCOMFORT 06/20/24 22:30 Witch Anika (Tucks) 1 pad PRN PRN TOP PERINEAL AREA DISCOMFORT 06/20/24 22:30 Others ve- 1cm/50/-3 Studies Laboratory Tests 06/20/24 22:44 Test 06/20/24 22:44 Range/Units Serum Glucose 103 74-106 mg/dL Ass/Plan Assessment iol Plan pt endorsed to NASH Pruett DO Jun 21, 2024 07:14
[2024-06-21] MEDS: NALBUPHINE HCL 10 MG/1ml INJECTION IV PRN (11:25)
[2024-06-21] MEDS ORDERED: LACTATED RINGER'S 500 ML IV ONE (16:30)
[2024-06-21] MEDS ORDERED: ePHEDrine SULFATE 50 MG/ML AMP IV ONE (16:30)
[2024-06-21] MEDS: ROPIVACAINE HCL 200 ML ONE (17:48)
--- NOTE | 2024-06-21 20:38 | DVHPN2 ---
OB Labor Progress Note Date and Time Seen Date Seen: Jun 21, 2024 Time Seen: 11:00 Subjective Patient reports: No new complaints Objective Vital Signs Afeb VS stable Monitoring Method Monitoring Method: External Heart Rate Heart Rate Baseline: 140 Heart Rate Variability: Moderate Presence of FHR Accelerations: Yes Presence of FHR Decelerations: No Contractions Contractions Frequency: Occasional Contractions Intensity: Mild Membranes Membranes: Intact Vaginal Exam Vag Exam Deferred: No Vaginal Exam Dilation: 1 Vaginal Exam Effacement: 40 Vaginal Exam Station: -4 Vaginal Exam Presentation: VTX Vaginal Exam Show: Small Medications Medications - Pitocin: No Medication - Epidural: No Lab Results Lab Results Vital Signs Date Time Temp Pulse Resp B/P (MAP) Pulse Ox O2 Delivery O2 Flow Rate FiO2 06/21/24 16:03 83 20 103/72 Current Medications Medications (Trade) Dose Ordered Sig/Rita Start Time Stop Time Status Last Admin Dose Admin Lactated Ringer's 1,000 ml @ 125 mls/hr Q8H 06/20/24 22:30 06/21/24 17:43 125 MLS/HR Nalbuphine HCl (Nubain) 10 mg Q4HP PRN 06/20/24 22:30 06/21/24 15:15 10 MG Witch Anika (Tucks) 1 pad PRN PRN 06/20/24 22:30 Sodium Lauryl Sulfate (Phisoderm) 240 ml PRN PRN 06/20/24 22:30 Benzocaine (Dermoplast) 1 applic PRN PRN 06/20/24 22:30 Lidocaine HCl (Xylocaine) 20 ml ONCE PRN 06/20/24 22:30 Misoprostol (Cytotec) 50 mcg Q4HPRN PRN 06/21/24 05:30 06/21/24 05:30 50 MCG Ephedrine Sulfate (ePHEDrine SULFATE) 10 mg PRN ONCE 06/21/24 16:30 06/21/24 16:31 DC Lactated Ringer's 500 ml @ 500 mls/hr Q1H ONCE 06/21/24 16:30 06/21/24 17:29 DC Laboratory Tests Test 06/20/24 22:44 06/20/24 22:30 Range/Units White Blood Count 11.7 H 4.4-10.8 10^3/uL Red Blood Count 3.48 L 4.0-5.20 10^6/uL Hemoglobin 9.7 L 12.2-16.2 g/dL Hematocrit 29.6 L 36.0-46.0 % Mean Corpuscular Volume 84.9 80.0-100.0 fL Mean Corpuscular Hemoglobin 27.9 L 28.0-32.0 pg Mean Corpuscular Hemoglobin Concent 32.9 32.0-36.0 g/dL Red Cell Distribution Width 15.0 H 11.8-14.3 % Platelet Count 186 140-450 10^3/uL Mean Platelet Volume 11.5 H 6.9-10.8 fL Neutrophils (%) (Auto) 75.2 37.0-80.0 % Lymphocytes (%) (Auto) 18.7 10.0-50.0 % Monocytes (%) (Auto) 6.0 0.0-12.0 % Eosinophils (%) (Auto) 0.0 0.0-7.0 % Basophils (%) (Auto) 0.1 0.0-2.0 % Neutrophils # (Auto) 8.8 H 1.6-8.6 10 ^3/uL Lymphocytes # (Auto) 2.2 0.4-5.4 10 ^3/uL Monocytes # (Auto) 0.7 0-1.3 10 ^3/uL Eosinophils # (Auto) 0 0-0.8 10 ^3/uL Basophils # (Auto) 0 0-0.2 10 ^3/uL Nucleated Red Blood Cells 0.0 % Prothrombin Time 9.8 9.3-11.8 sec Prothrombin Time INR 0.92 0.9-1.15 Activated Partial Thromboplast Time 29.6 24.5-34.5 SEC Sodium Level 140 136-145 mmol/L Potassium Level 3.7 3.5-5.1 mmol/L Chloride Level 110 H 98-107 mmol/L Carbon Dioxide Level 21 20-31 mmol/L Anion Gap 9 5-15 Blood Urea Nitrogen 9 9-23 mg/dL Creatinine 0.76 0.550-1.02 mg/dL Glomerular Filtration Rate Calc 112 >90 mL/min BUN/Creatinine Ratio 11.8 10.0-20.0 Serum Glucose 103 74-106 mg/dL Calcium Level 9.3 8.7-10.4 mg/dL Total Bilirubin 0.3 0.2-1.0 mg/dL Aspartate Amino Transferase (AST) 15 13-40 U/L Alanine Aminotransferase (ALT) 10 7-40 U/L Alkaline Phosphatase 201 H 46-116 U/L Total Protein 5.4 L 5.7-8.2 g/dL Albumin 3.3 3.2-4.8 g/dL Rapid Plasma Reagin Pending Hepatitis C Antibody Negative Negative Urine Color Light-yellow Yellow Urine Clarity Clear Clear Urine pH 6.5 5.0-9.0 Urine Specific [place] 1.019 1.001-1.035 Urine Protein Negative Negative Urine Ketones Negative Negative Urine Blood Negative Negative /uL Urine Nitrite Negative Negative Urine Bilirubin Negative Negative Urine Urobilinogen Normal Negative mg/dL Urine Leukocyte Esterase 2+ Negative /uL Urine RBC <1 0 - 4 /hpf Urine WBC <1 0 - 5 /hpf Urine Squamous Epithelial Cells Few <5 /hpf Urine Bacteria None seen None Seen /hpf Urine Mucus Few None Seen Urine Yeast (Budding) Occasional None Seen /hpf Urine Glucose Normal Normal mg/dL Urine Opiates Screen Neg NEGATIVE Urine Fentanyl Screen Neg NEGATIVE Urine Barbiturates Screen Neg NEGATIVE Urine Phencyclidine Screen Neg NEGATIVE Urine Amphetamines Screen Neg NEGATIVE Urine Benzodiazepines Screen Neg NEGATIVE Urine Cocaine Screen Neg NEGATIVE Urine Cannabinoids Screen Neg NEGATIVE Assessment Assessment Term IUP 41+ wk, Induction of labor s/p COOK Balloon placement for cervical dilation Plan Plan Continue COOK Balloon x 12 hr or until PROM or until falls out because of advanced dilation Continue to monitor EFM and pain control as needed Plan discussed with: Patient GALLITODAMIAN GUZMAN Jun 21, 2024 20:38
[2024-06-21] MEDS: ACETAMINOPHEN 325 MG TAB PO PRN (22:24)
--- NOTE | 2024-06-22 01:23 | DVHPN2 ---
OB Labor Progress Note Date and Time Seen Date Seen: Jun 22, 2024 Time Seen: 01:20 Subjective Patient reports: No new complaints Subjective Comment RN removed COOK BALLOON at 2300 hrs Patient is comfortable Objective Vital Signs AFeb VS Stable Monitoring Method Monitoring Method: Internal Heart Rate Heart Rate Baseline: 155 Heart Rate Variability: Moderate Presence of FHR Accelerations: Yes Presence of FHR Decelerations: No Contractions Contractions Intensity: Strong Contractions Resting Tone: Relaxed Membranes Membranes: Ruptured (AROM clear fluid. IUPC/FSE placed) Vaginal Exam Vag Exam Deferred: No Vaginal Exam Dilation: 4 Vaginal Exam Effacement: 90 Vaginal Exam Station: -2 Vaginal Exam Presentation: VTX Vaginal Exam Show: Small Medications Medications - Pitocin: No Medication - Epidural: Yes Lab Results Lab Results Vital Signs Date Time Temp Pulse Resp B/P (MAP) Pulse Ox O2 Delivery O2 Flow Rate FiO2 06/21/24 22:24 99.8 06/21/24 16:03 83 20 103/72 Current Medications Medications (Trade) Dose Ordered Sig/Rita Start Time Stop Time Status Last Admin Dose Admin Lactated Ringer's 1,000 ml @ 125 mls/hr Q8H 06/20/24 22:30 06/21/24 17:43 125 MLS/HR Nalbuphine HCl (Nubain) 10 mg Q4HP PRN 06/20/24 22:30 06/21/24 15:15 10 MG Witch Anika (Tucks) 1 pad PRN PRN 06/20/24 22:30 Sodium Lauryl Sulfate (Phisoderm) 240 ml PRN PRN 06/20/24 22:30 Benzocaine (Dermoplast) 1 applic PRN PRN 06/20/24 22:30 Lidocaine HCl (Xylocaine) 20 ml ONCE PRN 06/20/24 22:30 Misoprostol (Cytotec) 50 mcg Q4HPRN PRN 06/21/24 05:30 06/21/24 05:30 50 MCG Ephedrine Sulfate (ePHEDrine SULFATE) 10 mg PRN ONCE 06/21/24 16:30 06/21/24 16:31 DC Lactated Ringer's 500 ml @ 500 mls/hr Q1H ONCE 06/21/24 16:30 06/21/24 17:29 DC Acetaminophen (Tylenol Tablet) 650 mg Q4HP PRN 06/21/24 22:15 06/21/24 22:24 650 MG Laboratory Tests Test 06/20/24 22:44 06/20/24 22:30 Range/Units White Blood Count 11.7 H 4.4-10.8 10^3/uL Red Blood Count 3.48 L 4.0-5.20 10^6/uL Hemoglobin 9.7 L 12.2-16.2 g/dL Hematocrit 29.6 L 36.0-46.0 % Mean Corpuscular Volume 84.9 80.0-100.0 fL Mean Corpuscular Hemoglobin 27.9 L 28.0-32.0 pg Mean Corpuscular Hemoglobin Concent 32.9 32.0-36.0 g/dL Red Cell Distribution Width 15.0 H 11.8-14.3 % Platelet Count 186 140-450 10^3/uL Mean Platelet Volume 11.5 H 6.9-10.8 fL Neutrophils (%) (Auto) 75.2 37.0-80.0 % Lymphocytes (%) (Auto) 18.7 10.0-50.0 % Monocytes (%) (Auto) 6.0 0.0-12.0 % Eosinophils (%) (Auto) 0.0 0.0-7.0 % Basophils (%) (Auto) 0.1 0.0-2.0 % Neutrophils # (Auto) 8.8 H 1.6-8.6 10 ^3/uL Lymphocytes # (Auto) 2.2 0.4-5.4 10 ^3/uL Monocytes # (Auto) 0.7 0-1.3 10 ^3/uL Eosinophils # (Auto) 0 0-0.8 10 ^3/uL Basophils # (Auto) 0 0-0.2 10 ^3/uL Nucleated Red Blood Cells 0.0 % Prothrombin Time 9.8 9.3-11.8 sec Prothrombin Time INR 0.92 0.9-1.15 Activated Partial Thromboplast Time 29.6 24.5-34.5 SEC Sodium Level 140 136-145 mmol/L Potassium Level 3.7 3.5-5.1 mmol/L Chloride Level 110 H 98-107 mmol/L Carbon Dioxide Level 21 20-31 mmol/L Anion Gap 9 5-15 Blood Urea Nitrogen 9 9-23 mg/dL Creatinine 0.76 0.550-1.02 mg/dL Glomerular Filtration Rate Calc 112 >90 mL/min BUN/Creatinine Ratio 11.8 10.0-20.0 Serum Glucose 103 74-106 mg/dL Calcium Level 9.3 8.7-10.4 mg/dL Total Bilirubin 0.3 0.2-1.0 mg/dL Aspartate Amino Transferase (AST) 15 13-40 U/L Alanine Aminotransferase (ALT) 10 7-40 U/L Alkaline Phosphatase 201 H 46-116 U/L Total Protein 5.4 L 5.7-8.2 g/dL Albumin 3.3 3.2-4.8 g/dL Rapid Plasma Reagin Pending Hepatitis C Antibody Negative Negative Urine Color Light-yellow Yellow Urine Clarity Clear Clear Urine pH 6.5 5.0-9.0 Urine Specific [place] 1.019 1.001-1.035 Urine Protein Negative Negative Urine Ketones Negative Negative Urine Blood Negative Negative /uL Urine Nitrite Negative Negative Urine Bilirubin Negative Negative Urine Urobilinogen Normal Negative mg/dL Urine Leukocyte Esterase 2+ Negative /uL Urine RBC <1 0 - 4 /hpf Urine WBC <1 0 - 5 /hpf Urine Squamous Epithelial Cells Few <5 /hpf Urine Bacteria None seen None Seen /hpf Urine Mucus Few None Seen Urine Yeast (Budding) Occasional None Seen /hpf Urine Glucose Normal Normal mg/dL Urine Opiates Screen Neg NEGATIVE Urine Fentanyl Screen Neg NEGATIVE Urine Barbiturates Screen Neg NEGATIVE Urine Phencyclidine Screen Neg NEGATIVE Urine Amphetamines Screen Neg NEGATIVE Urine Benzodiazepines Screen Neg NEGATIVE Urine Cocaine Screen Neg NEGATIVE Urine Cannabinoids Screen Neg NEGATIVE Assessment Assessment Induction of labor 41+ wk s/p COOK Balloon now removed s/p Amniotomy, clear fluid Category 1 FHR pattern Plan Plan Continue Labor induction Observe UC pattern with IUPC now placed after AROM - Will augment labor with Pitocin PRN to achieve adequate labor pattern Plan discussed with: Patient, Other (RN) DAMIAN ALBERTO DO Jun 22, 2024 01:23
[2024-06-22] MEDS ORDERED: LACT. RINGERS/OXYTOCIN 20UNITS 1,000 ML IV SCH (02:30)
[2024-06-22] MEDS ORDERED: TERBUTALINE SULFATE 1 MG/ML 1ML VIAL SC PRN (02:30)
[2024-06-22] MEDS ORDERED: LACT. RINGERS/OXYTOCIN 20UNITS 500 ML IV ONE ×2 (02:30→03:00)
[2024-06-22] MEDS ORDERED: SODIUM CHLORIDE 0.9% 1,000 ML IUPC SCH (05:00)
[2024-06-22] MEDS ORDERED: SODIUM CHLORIDE 0.9% 300 ML IUPC ONE (05:00)
[2024-06-22] MEDS ORDERED: ONDANSETRON HCL 4 MG/2 ML VIAL IV PRN ×2 (05:45→10:30)
--- NOTE | 2024-06-22 07:57 | DVHPN2 ---
OB Labor Progress Note Date and Time Seen Date Seen: Jun 22, 2024 Time Seen: 07:54 Subjective Patient reports: No new complaints Objective Vital Signs Afeb VS stable Monitoring Method Monitoring Method: External Heart Rate Heart Rate Baseline: 155 Heart Rate Variability: Moderate Presence of FHR Accelerations: Yes Presence of FHR Decelerations: Yes Heart Rate Type of Decel: Variable Decelerations Contractions Contractions Intensity: Moderate Membranes Membranes: Ruptured Amniotic Fluid Color: [employer] Meconium Vaginal Exam Vag Exam Deferred: No Vaginal Exam Dilation: 4 Vaginal Exam Effacement: 70 Vaginal Exam Station: -3 Vaginal Exam Presentation: VTX Vaginal Exam Show: Small Medications Medications - Pitocin: No Medication - Epidural: Yes Lab Results Lab Results Vital Signs Date Time Temp Pulse Resp B/P (MAP) Pulse Ox O2 Delivery O2 Flow Rate FiO2 06/22/24 05:25 99.9 06/21/24 16:03 83 20 103/72 Current Medications Medications (Trade) Dose Ordered Sig/Rita Start Time Stop Time Status Last Admin Dose Admin Lactated Ringer's 1,000 ml @ 125 mls/hr Q8H 06/20/24 22:30 06/22/24 01:41 125 MLS/HR Nalbuphine HCl (Nubain) 10 mg Q4HP PRN 06/20/24 22:30 06/21/24 15:15 10 MG Witch Anika (Tucks) 1 pad PRN PRN 06/20/24 22:30 Sodium Lauryl Sulfate (Phisoderm) 240 ml PRN PRN 06/20/24 22:30 Benzocaine (Dermoplast) 1 applic PRN PRN 06/20/24 22:30 Lidocaine HCl (Xylocaine) 20 ml ONCE PRN 06/20/24 22:30 Misoprostol (Cytotec) 50 mcg Q4HPRN PRN 06/21/24 05:30 06/21/24 05:30 50 MCG Ephedrine Sulfate (ePHEDrine SULFATE) 10 mg PRN ONCE 06/21/24 16:30 06/21/24 16:31 DC Lactated Ringer's 500 ml @ 500 mls/hr Q1H ONCE 06/21/24 16:30 06/21/24 17:29 DC Acetaminophen (Tylenol Tablet) 650 mg Q4HP PRN 06/21/24 22:15 06/22/24 05:25 650 MG Oxytocin 1,000 ml @ 6 ml/hr Q24H 06/22/24 02:30 Terbutaline Sulfate (Brethine Inj) 0.25 mg ONCE PRN 06/22/24 02:30 Oxytocin 500 ml @ 999 mls/hr Q31M ONCE 06/22/24 02:30 06/22/24 03:00 DC Oxytocin 500 ml @ 125 mls/hr Q4H ONCE 06/22/24 03:00 06/22/24 06:59 DC Sodium Chloride 300 ml @ 0 mls/hr Q0M ONCE 06/22/24 05:00 06/22/24 05:07 DC Sodium Chloride 1,000 ml @ 100 mls/hr Q10H 06/22/24 05:00 Ondansetron HCl (Zofran) 4 mg Q4HPRN PRN 06/22/24 05:45 Laboratory Tests Test 06/20/24 22:44 06/20/24 22:30 Range/Units White Blood Count 11.7 H 4.4-10.8 10^3/uL Red Blood Count 3.48 L 4.0-5.20 10^6/uL Hemoglobin 9.7 L 12.2-16.2 g/dL Hematocrit 29.6 L 36.0-46.0 % Mean Corpuscular Volume 84.9 80.0-100.0 fL Mean Corpuscular Hemoglobin 27.9 L 28.0-32.0 pg Mean Corpuscular Hemoglobin Concent 32.9 32.0-36.0 g/dL Red Cell Distribution Width 15.0 H 11.8-14.3 % Platelet Count 186 140-450 10^3/uL Mean Platelet Volume 11.5 H 6.9-10.8 fL Neutrophils (%) (Auto) 75.2 37.0-80.0 % Lymphocytes (%) (Auto) 18.7 10.0-50.0 % Monocytes (%) (Auto) 6.0 0.0-12.0 % Eosinophils (%) (Auto) 0.0 0.0-7.0 % Basophils (%) (Auto) 0.1 0.0-2.0 % Neutrophils # (Auto) 8.8 H 1.6-8.6 10 ^3/uL Lymphocytes # (Auto) 2.2 0.4-5.4 10 ^3/uL Monocytes # (Auto) 0.7 0-1.3 10 ^3/uL Eosinophils # (Auto) 0 0-0.8 10 ^3/uL Basophils # (Auto) 0 0-0.2 10 ^3/uL Nucleated Red Blood Cells 0.0 % Prothrombin Time 9.8 9.3-11.8 sec Prothrombin Time INR 0.92 0.9-1.15 Activated Partial Thromboplast Time 29.6 24.5-34.5 SEC Sodium Level 140 136-145 mmol/L Potassium Level 3.7 3.5-5.1 mmol/L Chloride Level 110 H 98-107 mmol/L Carbon Dioxide Level 21 20-31 mmol/L Anion Gap 9 5-15 Blood Urea Nitrogen 9 9-23 mg/dL Creatinine 0.76 0.550-1.02 mg/dL Glomerular Filtration Rate Calc 112 >90 mL/min BUN/Creatinine Ratio 11.8 10.0-20.0 Serum Glucose 103 74-106 mg/dL Calcium Level 9.3 8.7-10.4 mg/dL Total Bilirubin 0.3 0.2-1.0 mg/dL Aspartate Amino Transferase (AST) 15 13-40 U/L Alanine Aminotransferase (ALT) 10 7-40 U/L Alkaline Phosphatase 201 H 46-116 U/L Total Protein 5.4 L 5.7-8.2 g/dL Albumin 3.3 3.2-4.8 g/dL Rapid Plasma Reagin Pending Hepatitis C Antibody Negative Negative Urine Color Light-yellow Yellow Urine Clarity Clear Clear Urine pH 6.5 5.0-9.0 Urine Specific [place] 1.019 1.001-1.035 Urine Protein Negative Negative Urine Ketones Negative Negative Urine Blood Negative Negative /uL Urine Nitrite Negative Negative Urine Bilirubin Negative Negative Urine Urobilinogen Normal Negative mg/dL Urine Leukocyte Esterase 2+ Negative /uL Urine RBC <1 0 - 4 /hpf Urine WBC <1 0 - 5 /hpf Urine Squamous Epithelial Cells Few <5 /hpf Urine Bacteria None seen None Seen /hpf Urine Mucus Few None Seen Urine Yeast (Budding) Occasional None Seen /hpf Urine Glucose Normal Normal mg/dL Urine Opiates Screen Neg NEGATIVE Urine Fentanyl Screen Neg NEGATIVE Urine Barbiturates Screen Neg NEGATIVE Urine Phencyclidine Screen Neg NEGATIVE Urine Amphetamines Screen Neg NEGATIVE Urine Benzodiazepines Screen Neg NEGATIVE Urine Cocaine Screen Neg NEGATIVE Urine Cannabinoids Screen Neg NEGATIVE Assessment Assessment Term IUP 41+ wk, Failed induction of labor Arrest of dilation after AROM Category II FHR, variable decels and late decels intermittently w/ moderate variability Meconium fluid 2+ Suspected CPD, LGA baby Plan Plan Recommend 1' C/S due to failed induction with arrest of dilation R/B/A d/w patient and informed consent obtained Plan discussed with: Patient DAMIAN ALBERTO DO Jun 22, 2024 07:57
[2024-06-22] MEDS ORDERED: LACTATED RINGER'S 1,000 ML IV SCH (08:00)
[2024-06-22 08:06] LABS: RPR Non Reactive (Non Reactive)
[2024-06-22] MEDS ORDERED: AZITHROMYCIN 500MG/ 250ML 250 ML IV ONE (08:23)
[2024-06-22] MEDS: ceFAZolin 2 GM/D5W50ml 50 ML IV ONE (08:32)
[2024-06-22] MEDS ORDERED: fentaNYL CITRATE 100 MCG/2 ML VL ONE (08:37)
[2024-06-22] MEDS ORDERED: MORPHINE SULF PF 5 MG/10 ML VIAL ONE (08:37)
[2024-06-22] MEDS ORDERED: OXYTOCIN 10UNIT/ML 1ML VIAL ONE (08:38)
[2024-06-22] MEDS ORDERED: SODIUM CHLORIDE LOCK 10 ML ONE (08:38)
[2024-06-22] MEDS ORDERED: ePHEDrine SULFATE 50 MG/ML AMP ONE (08:38)
[2024-06-22] MEDS ORDERED: ONDANSETRON HCL 4 MG/2 ML VIAL ONE (08:39)
[2024-06-22] MEDS ORDERED: DexAMETHasone SOD PHOS 10MG/1ML VIAL INJ ONE (08:39)
[2024-06-22] MEDS: METHYLERGONOVINE MALEATE 0.2 MG/ML AMP IM ONE (09:30)
[2024-06-22] MEDS: CARBOPROST TROMETHAMINE 250 MCG/1ML VIAL IM ONE (09:34)
[2024-06-22] MEDS ORDERED: PHENYLEPHRINE HCL 10 MG/ML VL ONE (09:38)
[2024-06-22] MEDS ORDERED: LACT. RINGERS/OXYTOCIN 20UNITS 1,000 ML IV ONE (10:00)
[2024-06-22] MEDS ORDERED: SIMETHICONE 80 MG CHEWABLE TABLET PO PRN (10:00)
[2024-06-22] MEDS ORDERED: MORPHINE SULFATE 4 MG/ML SYR/VIAL IV PRN (10:00)
--- NOTE | 2024-06-22 10:12 | DVHOP ---
DATE OF SURGERY: 06/22/2024 POSTOPERATIVE DIAGNOSES: * Term intrauterine 41+ weeks. * Failed induction of labor. * Cephalopelvic disproportion. FINAL DIAGNOSES: * Term intrauterine 41+ weeks. * Failed induction of labor. * Cephalopelvic disproportion. PROCEDURE PERFORMED: Primary low transverse section via Pfannenstiel skin incision. SURGEON: Hany Peraza DO REBEAMER: Alfa Narvaez NP TYPE OF ANESTHESIA: Epidural. ANESTHESIOLOGIST: Gamaliel Gosnales CRNA. DESCRIPTION OF FINDINGS: Delivery of a liveborn female , cephalic presentation, occiput posterior, head molding and caput present. 1+ meconium fluid, loose nuchal cord x1. Two layer uterine closure. Normal placenta, normal uterus, normal bilateral fallopian tubes and ovaries. TECHNICAL PROCEDURE: After informed consent was obtained, the patient was taken to the operating room where her epidural anesthesia was found to be adequate. She was placed in the supine position with a slight leftward tilt. She was sterilely prepped and draped in usual sterile fashion. A Pfannenstiel skin incision was made with the scalpel. The incision was carried down sharply to the underlying layer of fascia and peritoneum. The rectus muscles were dissected off the rectus fascia and entry into the peritoneal cavity was performed bluntly using digital technique. The peritoneal incision was extended superiorly and inferiorly with good visualization of the bladder. The Zaki O retractor was placed into the incision. Next, using a second scalpel, the lower uterine segment was incised in a low transverse fashion. The uterine incision was extended laterally by spreading the fingers laterally. The baby was found to be in the occiput posterior position. The baby was delivered atraumatically. A nuchal cord was reduced. After 60 seconds, the cord was clamped and cut and the baby handed off to waiting pediatric team. Baby's weight is 8 pounds 3 ounces with scores of 9 and 9. Cord blood was obtained. The placenta was then manually delivered. The uterus was exteriorized and cleared of all clots and debris. The uterine incision was repaired with #1 PDS in continuous running locking fashion. A second layer of #1 PDS was used to approximate and imbricate the uterine incision with good tissue approximation and hemostasis noted. The cul-de-sac and pericolic gutters were cleared of all clots and debris. The abdomen was irrigated with sterile water. Hemostasis was confirmed. The uterus was found to be atonic despite IV Pitocin and IM Methergine given. Therefore, Hemabate was injected directly into the uterine myometrium for added contractility and improved uterine tone. SNoW was placed over the uterine incision for added hemostasis. All instrumentation was then removed from the patient's abdomen. I then proceeded to close the rectus fascia using the #1 PDS Stratafix suture in continuous running fashion with good tissue approximation. The subcutaneous tissue was irrigated. Bleeding points controlled with cautery. The subcutaneous tissue was approximated with 2-0 plain gut and the skin was closed in subcuticular fashion using 3-0 Monocryl. Sylke dressing was then placed over the incision. The patient tolerated the procedure well. Sponge, lap and needle counts were correct x4. INTRAOPERATIVE COMPLICATIONS: None. ESTIMATED BLOOD LOSS: 700 mL. POSTOPERATIVE CONDITION: Stable. SPECIMENS: Cord blood and placenta. MEDICATIONS: The patient received Ancef 2 grams and azithromycin 500 mg IV prior to skin incision. DO JERMAIN Jalloh TID: [id number] RECEIPT: [id number]
[2024-06-22] MEDS ORDERED: HYDROmorphone HCL 2 MG/ML VL/or syr IV PRN (10:30)
[2024-06-22] MEDS ORDERED: diphenhdrAMINE HCL 50 MG/1 ML VL IV PRN (10:30)
[2024-06-22] MEDS ORDERED: NALOXONE HCL 0.4 MG/ML VIAL IV PRN (10:30)
[2024-06-22] MEDS ORDERED: DIPHENOXYLATE W/ATROPINE 2.5 MG TAB PO PRN (10:30)
[2024-06-22] MEDS ORDERED: HYDROmorphone HCL 2 MG/ML VL/or syr ONE (10:36)
[2024-06-22 11:00] VITALS: BP 140/78; PULSE 75; PULSE 87; RESP 18; O2SAT 97; O2SAT 98
[2024-06-22 13:00] VITALS: BP 119/77; PULSE 79; RESP 18
[2024-06-22] MEDS: ONDANSETRON HCL 4 MG/2 ML VIAL IV PRN (13:37)
[2024-06-22] MEDS: ACETAMINOPHEN IV 1000 MG/100ML (10MG/ML) IV PRN (13:57)
[2024-06-22 14:00] VITALS: BP 124/77; PULSE 72; RESP 18; O2SAT 98
[2024-06-22 15:00] VITALS: BP 114/68; PULSE 68; RESP 18; TEMP 98.2; O2SAT 97
[2024-06-22] MEDS: KETOROLAC TROMETH 30 MG/ML 1ML VIAL IV PRN (16:47)
[2024-06-22] MEDS: ceFAZolin 1GM/50ML 50 ML IV SCH (16:47)
[2024-06-22 19:15] VITALS: BP 114/73; PULSE 82; RESP 18; TEMP 98; O2SAT 97
[2024-06-22] MEDS: HYDROmorphone HCL 2 MG/ML VL/or syr IV PRN (21:43)
[2024-06-22] MEDS: DOCUSATE SOD 100 MG CAP PO SCH (21:43)
[2024-06-22 23:30] VITALS: BP 103/58; PULSE 94; RESP 16; TEMP 97.9; O2SAT 96
[2024-06-23 02:40] VITALS: BP 97/56; PULSE 92; RESP 14; TEMP 98.2; O2SAT 95
[2024-06-23] MEDS ORDERED: HYDROcodone-ACET 5/325MG TAB PO PRN (06:00)
[2024-06-23] MEDS: IBUPROFEN 600 MG TAB PO SCH (06:41)
[2024-06-23 07:00] VITALS: BP 92/50; PULSE 79; RESP 14; TEMP 97.6; O2SAT 96
--- NOTE | 2024-06-23 09:10 | DVHPN2 ---
Progress Note Date Seen: Jun 23, 2024 Subjective POD#1 s/p 1' C/S for failed induction of labor/ CPD S: Lochia mild to moderate. Pain moderate, controlled w/ analgesics. Denies N/V or fever vital signs Vital Sign Date Time Temp Pulse Resp B/P (MAP) Pulse Ox O2 Delivery O2 Flow Rate FiO2 06/23/24 07:00 97.6 79 14 92/50 (64) 96 97.6 06/23/24 07:00 Room Air 0.0 Total Intake and Output 06/22/24 06/22/24 06/23/24 15:00 23:00 07:00 Intake Total 240 ml Output Total 500 ml 1150 ml 260 ml Balance -500 ml -910 ml -260 ml medications Current Medications Medications Dose Ordered Sig/Rita Route Start Time Stop Time Status Last Admin Dose Admin Nalbuphine HCl 10 mg Q4HP PRN IV 06/20/24 22:30 06/21/24 15:15 10 MG Witch Anika 1 pad PRN PRN TOP 06/20/24 22:30 Sodium Lauryl Sulfate 240 ml PRN PRN TOP 06/20/24 22:30 Benzocaine 1 applic PRN PRN TOP 06/20/24 22:30 Lidocaine HCl 20 ml ONCE PRN IJ 06/20/24 22:30 Misoprostol 50 mcg Q4HPRN PRN PO 06/21/24 05:30 06/21/24 05:30 50 MCG Acetaminophen 650 mg Q4HP PRN PO 06/21/24 22:15 06/22/24 05:25 650 MG Terbutaline Sulfate 0.25 mg ONCE PRN SC 06/22/24 02:30 Ondansetron HCl 4 mg Q4HP PRN IV 06/22/24 10:00 06/22/24 13:37 4 MG Acetaminophen 1,000 mg [id number] PRN IV 06/22/24 10:00 06/23/24 09:59 06/23/24 02:29 1,000 MG Hydromorphone HCl 1 mg Q4HP PRN IV 06/22/24 10:00 06/22/24 21:43 1 MG Docusate Sodium 200 mg HS PO 06/22/24 22:00 Dimethicone 80 mg QID PRN PO 06/22/24 10:00 Ibuprofen 600 mg Q6HR PO 06/23/24 06:00 06/23/24 06:41 600 MG Acetaminophen/ Hydrocodone Bitart 1 tab Q4HPRN PRN PO 06/23/24 06:00 Acetaminophen/ Hydrocodone Bitart 2 tab Q4HPRN PRN PO 06/23/24 06:00 Diphenhydramine HCl 25 mg Q4HP PRN IV 06/22/24 10:30 Ketorolac Tromethamine 30 mg Q6HP PRN IV 06/22/24 10:30 06/27/24 10:29 06/23/24 00:11 30 MG Diphenoxylate HCl/ Atropine 2.5 mg PRN PRN PO 06/22/24 10:30 laboratory and microbiology Laboratory Tests 06/20/24 22:44 Test 06/20/24 22:44 Range/Units Serum Glucose 103 74-106 mg/dL Objective O: AFVSS Chest: heart and lung sounds normal. Abd soft, non-tender, fundus firm, BS, no rebound or guarding, Incision - dressing and incision clean, dry, intact Ext Neg Homans, Non-tender, edema Lochia - minimal Labs Pending Assessment/Plan POD#1 s/p 1' C/S doing well Plan: Check CBC Advance orders Supportive care pain control Possible D/C to home tomorrow Plan discussed with: Patient DAMIAN ALBERTO DO Jun 23, 2024 09:10
[2024-06-23] MEDS: ceFAZolin 1GM/50ML 50 ML IV ONE (09:17)
[2024-06-23 11:00] VITALS: BP 92/55; PULSE 86; RESP 20; TEMP 97.5; O2SAT 98
[2024-06-23] MEDS: HYDROcodone-ACET 5/325MG TAB PO PRN (11:40)
[2024-06-23 12:34] LABS: Basophils # (auto) 0 10 ^3/uL (0-0.2); Eosinophils # (auto) 0 10 ^3/uL (0-0.8); Hematocrit 26.3 % (36.0-46.0); Hemoglobin 8.5 g/dL (12.2-16.2); Lymphocytes # (auto) 2.2 10 ^3/uL (0.4-5.4); Lymphocytes % (auto) 8.5 % (10.0-50.0); Mean Corpuscular Hemoglobin 27.3 pg (28.0-32.0); Mean Corpuscular Hgb Conc. 32.2 g/dL (32.0-36.0); Mean Corpuscular Volume 84.7 fL (80.0-100.0); Monocytes # (auto) 1.2 10 ^3/uL (0-1.3); Monocytes % (auto) 4.8 % (0.0-12.0); Neutrophils # (auto) 22.6 10 ^3/uL (1.6-8.6); Neutrophils % (auto) 86.7 % (37.0-80.0); Platelet Count (auto) 192 10^3/uL (140-450); Red Blood Cells 3.11 10^6/uL (4.0-5.20); Red Cell Distribution Width 15.1 % (11.8-14.3); White Blood Cell 26.1 10^3/uL (4.4-10.8)
[2024-06-23 15:00] VITALS: BP 102/61; PULSE 103; RESP 16; TEMP 98.2; O2SAT 96
[2024-06-23 18:45] VITALS: BP 103/60; PULSE 104; RESP 16; TEMP 98; O2SAT 96
[2024-06-23] MEDS: FERROUS SULFATE 325mg EC TAB PO SCH (18:45)
[2024-06-23] MEDS: FUROSEMIDE 40 MG/4 ML VIAL IV ONE (18:47)
[2024-06-23 22:45] VITALS: BP 90/54; PULSE 72; RESP 14; TEMP 97.7; O2SAT 95
[2024-06-24 02:57] VITALS: BP 98/56; PULSE 78; RESP 14; TEMP 97.9; O2SAT 96
[2024-06-24 04:41] LABS: Basophils # (auto) 0 10 ^3/uL (0-0.2); Basophils % (auto) 0.1 % (0.0-2.0); Eosinophils # (auto) 0 10 ^3/uL (0-0.8); Monocytes # (auto) 0.8 10 ^3/uL (0-1.3); White Blood Cell 17.7 10^3/uL (4.4-10.8)
[2024-06-24 04:43] LABS: Eosinophils % (auto) 0.1 % (0.0-7.0); Hematocrit 24.2 % (36.0-46.0); Lymphocytes % (auto) 17.2 % (10.0-50.0); Mean Corpuscular Hemoglobin 27.9 pg (28.0-32.0); Mean Corpuscular Volume 84.6 fL (80.0-100.0); Monocytes % (auto) 4.6 % (0.0-12.0); Neutrophils # (auto) 13.8 10 ^3/uL (1.6-8.6); Platelet Count (auto) 202 10^3/uL (140-450); Red Blood Cells 2.86 10^6/uL (4.0-5.20); Red Cell Distribution Width 15.3 % (11.8-14.3)
[2024-06-24] MEDS ORDERED: IBU600T PO (06:42)
[2024-06-24] MEDS ORDERED: FER325T PO (06:42)
[2024-06-24] MEDS ORDERED: HYDR-4902 PO (06:42)
[2024-06-24] MEDS ORDERED: IBUPROFEN 600 MG TAB PO PRN (06:45)
[2024-06-24 07:00] VITALS: BP 96/55; PULSE 73; RESP 16; TEMP 97.7; O2SAT 97
--- NOTE | 2024-06-24 08:07 | DVHDS2 ---
Discharge Summary Date of Admission Jun 20, 2024 at 22:17 Date of Discharge: Jun 24, 2024 Admitting Diagnosis Term IUP 41 wk, scheduled labor induction Suspected LGA Labs/Diagnostic Data: Laboratory Results Test 06/24/24 03:36 06/20/24 22:44 06/20/24 22:30 White Blood Count 17.7 10^3/uL (4.4-10.8) Red Blood Count 2.86 10^6/uL (4.0-5.20) Hemoglobin 8.0 g/dL (12.2-16.2) Hematocrit 24.2 % (36.0-46.0) Mean Corpuscular Volume 84.6 fL (80.0-100.0) Mean Corpuscular Hemoglobin 27.9 pg (28.0-32.0) Mean Corpuscular Hemoglobin Concent 33.0 g/dL (32.0-36.0) Red Cell Distribution Width 15.3 % (11.8-14.3) Platelet Count 202 10^3/uL (140-450) Mean Platelet Volume 11.2 fL (6.9-10.8) Neutrophils (%) (Auto) 78.0 % (37.0-80.0) Lymphocytes (%) (Auto) 17.2 % (10.0-50.0) Monocytes (%) (Auto) 4.6 % (0.0-12.0) Eosinophils (%) (Auto) 0.1 % (0.0-7.0) Basophils (%) (Auto) 0.1 % (0.0-2.0) Neutrophils # (Auto) 13.8 10 ^3/uL (1.6-8.6) Lymphocytes # (Auto) 3.0 10 ^3/uL (0.4-5.4) Monocytes # (Auto) 0.8 10 ^3/uL (0-1.3) Eosinophils # (Auto) 0 10 ^3/uL (0-0.8) Basophils # (Auto) 0 10 ^3/uL (0-0.2) Nucleated Red Blood Cells 0.0 % Prothrombin Time 9.8 sec (9.3-11.8) Prothrombin Time INR 0.92 (0.9-1.15) Activated Partial Thromboplast Time 29.6 SEC (24.5-34.5) Sodium Level 140 mmol/L (136-145) Potassium Level 3.7 mmol/L (3.5-5.1) Chloride Level 110 mmol/L (98-107) Carbon Dioxide Level 21 mmol/L (20-31) Anion Gap 9 (5-15) Blood Urea Nitrogen 9 mg/dL (9-23) Creatinine 0.76 mg/dL (0.550-1.02) Glomerular Filtration Rate Calc 112 mL/min (>90) BUN/Creatinine Ratio 11.8 (10.0-20.0) Serum Glucose 103 mg/dL (74-106) Calcium Level 9.3 mg/dL (8.7-10.4) Total Bilirubin 0.3 mg/dL (0.2-1.0) Aspartate Amino Transferase (AST) 15 U/L (13-40) Alanine Aminotransferase (ALT) 10 U/L (7-40) Alkaline Phosphatase 201 U/L (46-116) Total Protein 5.4 g/dL (5.7-8.2) Albumin 3.3 g/dL (3.2-4.8) Rapid Plasma Reagin Non reactive (Non Reactive) Hepatitis C Antibody Negative (Negative) Urine Color Light-yellow (Yellow) Urine Clarity Clear (Clear) Urine pH 6.5 (5.0-9.0) Urine Specific [place] 1.019 (1.001-1.035) Urine Protein Negative (Negative) Urine Ketones Negative (Negative) Urine Blood Negative /uL (Negative) Urine Nitrite Negative (Negative) Urine Bilirubin Negative (Negative) Urine Urobilinogen Normal mg/dL (Negative) Urine Leukocyte Esterase 2+ /uL (Negative) Urine RBC <1 /hpf (0 - 4) Urine WBC <1 /hpf (0 - 5) Urine Squamous Epithelial Cells Few /hpf (<5) Urine Bacteria None seen /hpf (None Seen) Urine Mucus Few (None Seen) Urine Yeast (Budding) Occasional /hpf (None Urine Glucose Normal mg/dL (Normal) Urine Opiates Screen Neg (NEGATIVE) Urine Fentanyl Screen Neg (NEGATIVE) Urine Barbiturates Screen Neg (NEGATIVE) Urine Phencyclidine Screen Neg (NEGATIVE) Urine Amphetamines Screen Neg (NEGATIVE) Urine Benzodiazepines Screen Neg (NEGATIVE) Urine Cocaine Screen Neg (NEGATIVE) Urine Cannabinoids Screen Neg (NEGATIVE) Other Laboratory Tests 06/24/24 03:36 06/20/24 22:44 Brief Hx & Hospital Course: Failed labor induction, arrest of dilation after 4cm w/ PROM x 6 hours CPD on exam noted s/p 1' C/Section delivery Precipitous drop in H/H, on top of chronic anemia (asymptomatic) Normal post op course, stable Operations or Procedures Primary low transv c/section delivery Condition at Discharge: Stable Final Diagnosis/Problems List Term delivered s/p primary c/section Secondary Diagnosis: Precipitous drop in H/H Discharge Disposition: Home Discharge Instruct/Medications Diet: Regular Activity: Light activity Activity comment: pelvic rest x 6 wk Follow Up/Referral: [address] Alberto Medications: See ERX Discharge Statement: "Patient was advised to return to the ER or call 911 if any headaches, dizziness, shortness of breath, chest pain, abdominal pain, bleeding, fevers, or worsening of medical condition. Patient was counseled about treatment plan, medications, possible side effects, patientverbalized understanding. All questions were answered to the best of my ability. This discharge took greater then 30 minutes in planning, reviewing documentation, counseling the patient, and discussing with other team members." ASSESSMENT ASSESSMENT Assessment Term delivered s/p primary c/section DAMIAN ALBERTO DO Jun 24, 2024 08:07
[2024-06-24] MEDS ORDERED: DOCU-94 PO (08:08)
== END 2024-06-24 12:23 | disposition home or self-care (01) | DRG 788 ==
LOC: LDRP 22:17
PROVIDERS: ADMIT Obstetrics & Gynecology; ATTEND Obstetrics & Gynecology
PROC: 0U7C7ZZ Dilation of Cervix, Via Natural or Artificial Opening (ICD-10-PCS; 2024-06-20)
PROC: 10D00Z1 Extraction of Products of Conception, Low, Open Approach (ICD-10-PCS; principal; 2024-06-22 08:52)
DX: O48.0 Post-term pregnancy (principal); O33.9 Maternal care for disproportion, unspecified; Z37.0 Single live birth; O61.9 Failed induction of labor, unspecified; O62.2 Other uterine inertia; O76 Abnormality in fetal heart rate and rhythm complicating labor and delivery; O42.92 Full-term premature rupture of membranes, unspecified as to length of time between rupture and onset of labor; O77.0 Labor and delivery complicated by meconium in amniotic fluid; O99.02 Anemia complicating childbirth; Z3A.41 41 weeks gestation of pregnancy; Z88.0 Allergy status to penicillin
CPT/HCPCS: 36415; 59025; 59200; 62282; 76805; 80053; 80307; 81001; 81002; 85025; 85610; 85730; 86592; 86803; 86850; 86900; 86901; 94760; 94762; 96360; 96361; 96366; 96374; 96375; G0378; J0131; J1100; J1885; J2405; J2590